=== PATIENT | female | born 1945 | race Caucasian/White ===

== ENCOUNTER 2018-03-15 09:41 | Emergency (ER) | payer MEDICARE ==
--- OUTSIDE RECORDS SUMMARY | 2018-03-15 09:55 | XMS REPORT ---
:1945 External Reference #:[id number] Author Organization [facility] 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 Jameel Haddad MD Primary Care Physician Unavailable Payers Type Date Identification Numbers Payment Provider Subscriber Medicare Primary Effective: Policy Number: Medicare Deedee Painter 2017 [id number] PayID: [id number] [address] [place] [address] [facility] Part [facility] Policy Number: [id number] [facility] Deedee Painter PayID: [id number] [address] [place] [address] Workers Compensation [facility]: [facility] [address] [address] [place] [address] Problems Date Description Provider Status Onset: 03/29/2003 Localized, primary osteoarthritis of the Active hand Onset: 10/30/2016 Screening for malignant neoplasm of colon Radu Browning MD Active Onset: 10/06/2017 Gynecologic examination Beti Acosta CNM Active Onset: 10/06/2017 Screening mammography Beti Acosta CNM Active Onset: 10/06/2017 Atrophic vaginitis Beti Acosta CNM Active Family History Date Family Member(s) Problem(s) Comments Father Heart Disease Mother Stroke Social History Type Date Description Comments Marital Status Home Environment Lives With Occupation Retired Work Status Retired Cigarette Use Never Smoked Cigarettes Smokeless Tobacco Never Used Smokeless Tobacco ETOH Use Denies alcohol use Smoking Patient denies history of smoking Recreational Drug Use Denies Drug Use Daily Caffeine Consumes on average 1 cup of hot tea per day Age 1st [place] 20 Years Old Allergies, Adverse Reactions, Alerts Date Description Reaction Status Severity Comments Sulfamethoxazole / Trimethoprim active 12/22/2013 NKDA inactive Medications Medication Date Status Form Strength Qnty SIG Indications Ordering Provider Prednisolone 03/05/ Active Suspension 1% 5ml 1 drop Z96.1 Julius Easley 2018 right eye MD Bj four times daily for four weeks; please begin after surgery Ofloxacin 02/17/ Active Solution 0.3% 1unit 1 drop H25.811 Sloan EasleyOphthalmic) 2018 s right eye MD Bj four times daily for 10 days beginning three days prior to the operation Ketorolac 02/17/ Active Solution 0.5% 5unit 1 drop H25.811 Kaushal Tromethamine 2018 s right eye MD Bj 4 times daily for 2 weeks; please begin 3 days prior to operation Metformin HCL / Active Tablets 500mg 1 po bid Unknown 0000 Gabapentin / Active Capsules 100mg 1 po qd Unknown 0000 Metoprolol / Active Tablets 50mg 1 po bid Unknown Tartrate 0000 Calcium 600 / Active 1 po qd Unknown With Vitamin D 0000 Multi For Her / Active Capsules 1 po qd Unknown 50+ 0000 Gabapentin / Active Capsules 400mg by mouth Unknown 0000 every day Simvastatin 00/ Active Tablets 10mg 1 by mouth Unknown 0000 every day Aspir-81 / Active Tablets DR 81mg 1 by mouth Unknown 0000 every day Ofloxacin 12/30/ Hx Solution 0.3% 1unit 1 drop H25.813 Sloan EasleyOphthalmic) 2018 - s left eye MD Bj times 2017 daily for 10 days beginning three days before surgery Prednisolone 12/30/ Hx Suspension 1% 5ml 1 drop H25.813 Kaushal Acetate 2018 - left eye MD Bj four times 2017 daily for four weeks; please begin after surgery Ketorolac 12/30/ Hx Solution 0.5% 5unit 1 drop H25.813 Michael Easleymethamine 2018 - s operative MD Bj 01/28/ eye 4 2018 times daily for 2 weeks; please begin 3 days prior to operation Golytely 10/30/ Hx Solution Rec 236gm 4000m drink half Z12.11 Radu 2016 - l the MD Nam evening 2017 before and half the morning of the procedure (1 cup every 10') Dulcolax 10/30/ Hx Tablets DR 5mg 4tabs 4 tablets Z12.11 Radu 2016 - taken raquel Browning MD 8pm the 2017 day before the procedure Magnesium 10/30/ Hx Solution 1.745GM/30 296ml 1 bottle Z12.11 Radu Citrate 2017 - ML po x one MD Nam 2018 directed Simvastatin / Hx Tablets 10mg Unknown 0000 Glimepiride / Hx Tablets 1mg Unknown 0000 Fiber-Lax / Hx Tablets 625mg Unknown 0000 Multi Vitamin / Hx Tablets Unknown Daily 0000 Aspir-81 / Hx Tablets DR 81mg Unknown 0000 Methenamine / Hx Tablets 1gm 1 po bid Unknown Hippurate - 2017 Gabapentin / Hx Capsules 100mg 1 po qd Unknown 0000 - 2017 Immunizations CPT Code Status Date Vaccine Lot # [id number] Given 06/05/2007 Pneumovax Injection Vital Signs Date Vital Result Comment 10/06/2017 BP Systolic 158 mmHg BP Diastolic 74 mmHg Body Temperature 98.0 F Heart Rate 78 /min Respiratory Rate 18 /min Height 63.5 inches 5'3.50" Weight 150.00 lb BMI (Body Mass Index) 26.2 kg/m2 BSA (Body Surface Area) 1.72 m2 [place] body weight in kilograms 53 O2 % BldC Oximetry 96 % 10/30/2016 BP Systolic Sitting Left Arm 130 mmHg BP Diastolic Sitting Left Arm 82 mmHg Heart Rate 73 /min Respiratory Rate 16 /min Height 63.5 inches 5'3.50" Weight 146.00 lb BMI (Body Mass Index) 25.5 kg/m2 BSA (Body Surface Area) 1.70 m2 [place] body weight in kilograms 53 12/22/2013 BP Systolic Sitting Right Arm 118 mmHg BP Diastolic Sitting Right Arm 60 mmHg Height 63.5 inches 5'3.50" Weight 138.00 lb BMI (Body Mass Index) 24.1 kg/m2 BSA (Body Surface Area) 1.66 m2 Results Description No Information Procedures Date CPT Code Description Status Comment 03/04/2018 84308 Extracapsular Cataract Completed Extraction W/Intraocular Lens 01/07/2018 61221 Extracapsular Cataract Completed Extraction W/Intraocular Lens 12/30/2017 21957 Ophthalmic Biometry By Completed Partial Coherence Interferometry W/Intra 12/30/2017 17070 Eye Exam Est Patient Completed Comprehensive 12/19/2017 33770 Eye Exam New Patient Completed Comprehensive 11/19/2016 81465 Colonoscopy With Biopsy Completed 10/17/2003 Colonoscopy Completed Document: 10/17/03 - Operative Colonoscopy Encounters Type Date Location Provider CPT E/M Dx Office Visit 10/06/2017 1:00p Family Medicine & [facility], Beti, [facility] G0439 Z01.411 Women's Health N95.2 Z12.31 Z01.411 Z12.31 N95.2 Office Visit 10/30/2016 11:30[place] [address] Z12.11 Office Visit 12/22/2013 10:30a Orthopaedic Office Gabrielle Molina, [address] 719.45 [facility] 719.42 719.42 719.45 E888.9 Office Visit 11/13/2007 4:00[place] [address] 401.1 250.02 786.2 Office Visit 10/16/2007 9:00a [place] [address] 461.9 250.02 401.1 Office Visit 09/11/2007 10:15a [place] [address] 719.46 Office Visit 06/05/2007 3:00p [place] [address] 401.1 562.10 333.94 V03.82 Office Visit 03/06/2007 9:15a [place] [address] 250.02 562.11 401.1 333.94 Office Visit 12/05/2006 9:00[place] [address] 250.00 Plan of Care Future Appointment(s):08/20/2018 11:15 am - Cass Brooks M.D. at Urology
--- OUTSIDE RECORDS SUMMARY | 2018-03-15 09:55 | XMS REPORT ---
:1945 External Reference #:[id number] Author Organization [facility] 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 Deedee Painter PayID: [id number] [address] [place] [address] Medicare Primary Expires: 2017 Policy Number: [id number] Medicare Deedee Painter PayID: [id number] [address] [place] [address] Workers Compensation Onset: 2013 [facility] Deedee Painter [address] [address] [place] [address] Problems Date Description Provider Status Onset: 03/29/2003 [...] of hot tea per day Age 1st [place] 20 Years Old Allergies, Adverse Reactions, Alerts Date Description Reaction Status Severity Comments Sulfamethoxazole / Trimethoprim active 12/22/2013 NKDA inactive Medications Medication Date Status Form Strength Qnty SIG Indications Ordering Provider Ofloxacin 02/17/ Active Solution 0.3% 1unit 1 drop H25.811 Kaushal (Ophthalmic) 2018 s right eye MD Bj four times daily for 10 days beginning three days prior to the operation Ketorolac 02/17/ Active Solution 0.5% 5unit 1 drop H25.811 Michael Easleymethamine 2018 s right eye MD Bj 4 [...] With Vitamin D 0000 Multi For Her 00/ Active Capsules 1 po qd Unknown 50+ 0000 Gabapentin / Active Capsules 400mg by mouth Unknown 0000 every day Simvastatin 00/ Active Tablets 10mg 1 by mouth Unknown 0000 every day Aspir-81 / Active Tablets DR 81mg 1 by mouth Unknown 0000 every day Ofloxacin 12/30/ Hx Solution 0.3% 1unit 1 drop H25.813 Kaushal (Ophthalmic) 2018 - s left eye MD Bj four times 2017 daily for 10 days beginning three days before surgery Prednisolone 12/30/ Hx Suspension 1% 5ml 1 drop H25.813 Kaushal Acetate 2018 - left eye MD Bj four times 2018 daily for four weeks; please begin after [...] - ML po x one MD Nam as 2018 directed Simvastatin / Hx Tablets 10mg [...] CPT Code Status Date Vaccine Lot # [id number] Given 06/05/2007 Pneumovax Injection Vital Signs Date Vital Result Comment 10/06/2017 BP Systolic 158 mmHg BP Diastolic 74 mmHg Body Temperature 98.0 F Heart Rate 78 /min Respiratory Rate 18 /min Height 63.5 inches 5'3.50" Weight 150.00 lb BMI (Body Mass Index) 26.2 kg/m2 BSA (Body Surface Area) 1.72 m2 [place] body weight in kilograms 53 O2 % BldC Oximetry 96 % 10/30/2016 BP Systolic Sitting Left Arm 130 mmHg BP Diastolic Sitting Left Arm 82 mmHg Heart Rate 73 /min Respiratory Rate 16 /min Height 63.5 inches 5'3.50" Weight 146.00 lb BMI (Body Mass Index) 25.5 kg/m2 BSA (Body Surface Area) 1.70 m2 [place] body weight in kilograms 53 12/22/2013 BP Systolic Sitting Right Arm 118 mmHg BP Diastolic Sitting Right Arm 60 mmHg Height 63.5 inches 5'3.50" Weight 138.00 lb BMI (Body Mass Index) 24.1 kg/m2 BSA (Body Surface Area) 1.66 m2 Results Description No Information Procedures Date CPT Code Description Status Comment 01/07/2018 13161 Extracapsular Cataract Completed Extraction W/Intraocular Lens 12/30/2017 82198 Ophthalmic Biometry By Completed Partial Coherence Interferometry W/Intra 12/30/2017 96082 Eye Exam Est Patient Completed Comprehensive 12/19/2017 48128 Eye Exam New Patient Completed Comprehensive 11/19/2016 68407 Colonoscopy With Biopsy Completed 10/17/2003 Colonoscopy Completed Document: 10/17/03 - Operative Colonoscopy Encounters Type Date Location Provider CPT E/M Dx Office Visit 10/06/2017 1:00p Family Medicine & [facility], Beti, [facility] G0439 Z01.411 Women's Health N95.2 Z12.31 Z01.411 Z12.31 N95.2 Office Visit 10/30/2016 11:30[place] [address] Z12.11 Office Visit 12/22/2013 10:30a Orthopaedic Office Gabrielle Molina, 67647 719.45 RPAC 719.42 719.42 719.45 E888.9 Office Visit 11/13/2007 4:00p [place] [address] 401.1 250.02 786.2 Office Visit 10/16/2007 9:00a [place] [address] 461.9 250.02 401.1 Office Visit 09/11/2007 10:15a [place] [address] 719.46 Office Visit 06/05/2007 3:00p [place] [address] 401.1 562.10 333.94 V03.82 Office Visit 03/06/2007 9:15a [place] [address] 250.02 562.11 401.1 333.94 Office Visit 12/05/2006 9:00[place] [address] 250.00 Plan of Care Future Appointment(s):03/04/2018 8:30 am - Bj Easley MD at Operating Room 9:15 am - Bj Easley MD at Ophthalmology
--- OUTSIDE RECORDS SUMMARY | 2018-03-15 09:56 | XMS REPORT | Continuity of Care Document ---
:1945 External Reference #:[id number] Author Name Hamida Pressley Care Team Providers Name Role Phone Jameel Haddad MD Care Team Information Nursing Manager Unavailable Jameel Haddad MD Primary Care Physician Unavailable Payers Type Date Identification Numbers Payment Provider Subscriber Policy Number: [id number] Medicare Deedee Painter PayID: [id number] [address] [place] [address] Effective: 2012 Policy Number: [facility] Supplemental Plan Deedee Painter [id number] PayID: [id number] [address] [place] [address] Effective: 2011 Policy Number: [id number] Medicare Deedee Painter Expires: 2017 PayID: [id number] [address] [place] [address] Advance Directives Description No Information Available Problems Date Description Provider Status Onset: 07/25/2011 Microscopic hematuria Debora Mart MD Active Onset: 07/25/2011 Increased frequency of urination Debora Mart MD Active Onset: 07/25/2011 Mixed urinary incontinence Beti Murillo NP/PA Active Onset: 05/12/2014 Type 2 diabetes mellitus Tara Villanueva M.D. Active Onset: 04/23/2017 Nocturnal enuresis Sathya Colbert MD Active Onset: 04/23/2017 History of chronic urinary tract Sathya Colbert MD Active infection Family History Date Family Member(s) Problem(s) Comments Father Heart Condition Mother Unknown Free Text Denies Prostate, Bladder, Kidney Cancer. No family history of kidney stones. Social History Type Date Description Comments Sex Unknown Marital Status Patient is Occupation Patient is retired Tobacco Use Reviewed: 02/19/18 Never Smoked Cigarettes does smoke Smoking Status Reviewed: 02/19/18 Never Smoked Cigarettes does smoke Tobacco Use Start: Unknown Never Smoked Cigars Tobacco Use Start: Unknown Never Smoked A Pipe ETOH Use Patient denies alcohol use Allergies, Adverse Reactions, Alerts Date Description Reaction Status Severity Comments 07/01/2014 Sulfamethoxazole Active 07/01/2014 Trimethoprim Active 05/09/2011 NKDA Inactive 07/18/2014 NKDA Inactive Medications Medication Date Status Form Strength Qnty SIG Indications Ordering Provider Simvastatin / Active Tablets 10mg qhs Unknown 0000 Gabapentin / Active Capsules 400mg qd Unknown 0000 Metoprolol / Active Tablets 50mg bid Unknown Tartrate 0000 Multi-Vitamin / Active Tablets daily Unknown 0000 Metformin HCL / Active Tablets 500mg Unknown 0000 Aspirin Adult / Active Tablets DR 81mg Once Daily Unknown Low Strength 0000 Calcium / Active Tablets 600-200mg- 2 Times A Unknown Carbonate-Vitami 0000 Unit Day n D Ketorolac / Active Solution 0.5% Instill 1 Unknown Tromethamine 0000 Drop In Operative Eye 4 Times Daily For 2 Weeks Please Begin 3 Days Prior To Operation Ofloxacin / Active Solution 0.3% Instill 1 Unknown (Ophthalmic) 0000 Drop In Left Eye Four Times Daily For 10 Days Beginning Three Days Before Surgery Keflex 01/09/ Hx Capsules 250mg 10cap 1 by mouth Sathya Burns 2018 - s twice a MD Filemon 2017 Keflex 07/27/ Hx Capsules 500mg 21cap one Sathya Donnelly - s jocelyn Colbert MD 09/25/ three 2018 times a day. Augmentin 04/28/ Hx Tablets 500-125mg 14tab 1 by mouth Sathya Burns 2018 - s twice raquel Colbert MD 2017 Keflex 08/23/ Hx Capsules 500mg 21cap 1 by mouth Kay 2017 - s 3x a day Pacheco M, 04/22/ x7d M.D. 2018 Hiprex 03/14/ Hx Tablets 1gm 270ta 1 by mouth Kay 2016 - bs three Pacheco M, 04/22/ times a M.D. 2017 day Macrodantin 02/08/ Hx Capsules 100mg 90cap 1 by mouth Kay 2016 - s daily Pacheco M, 09/25/ M.D. 2017 Macrodantin 12/01/ Hx Capsules 100mg 100ca 1 by mouth Elhassan, 2015 - ps every day Pacheco M, .D. 2016 Nitrofurantoin 12/01/ Hx Capsules 100mg 30cap 1 by mouth Angie Villanueva 2014 - s daily Pacheco M, .D. 2016 Cephalexin 07/13/ Hx Capsules 500mg 40cap Every 12 Unknown 2015 - s Hours 2015 Januvia /00/ Hx Tablets 100mg qd Unknown - 2015 Aspirin / Hx Tablets DR qd Unknown - 2015 Glimepiride /00/ Hx Tablets qd Unknown - 2014 Calcium 600 + D / Hx Tablets 600-400mg- Unknown 0000 - Unit 2014 Fiber Tabs 00/ Hx Tablets Unknown - 2014 [facility] Fiber / Hx Tablets 625mg Once Daily Unknown Laxative - 2017 Glimepiride /00/ Hx Tablets 1mg Once Daily Unknown - 2015 Fortamet / Hx Tablets ER 500mg 2 Times A Unknown 0000 - 24HR Day 2015 Nitrofurantoin 00/ Hx Capsules 100mg Take 1 Unknown Monohyd Macro 0000 - Capsule By 2016 Daily Nitrofurantoin /00/ Hx Capsules 100mg Gagen, Monohydrate/Macr 0000 - Lori ocrystals , CAN INSPECTOR 2018 Nitrofurantoin 00/00/ Hx Capsules 100mg Take 1 Unknown Monohydrate/Macr 0000 - Capsule By ocrystals 2018 Twice Daily Immunizations Description No Information Available Vital Signs Date Vital Result Comment 01/07/2018 3:13pm Height 63.5 inches 5'3.50" Weight 148.00 lb Weight 67.133 kg BMI (Body Mass Index) 25.8 kg/m2 09/26/2017 10:02am Height 63.5 inches 5'3.50" Weight 147.00 lb Weight 66.679 kg BMI (Body Mass Index) 25.6 kg/m2 06/12/2017 1:27pm Height 63.5 inches 5'3.50" Weight 145.00 lb Weight 65.772 kg BMI (Body Mass Index) 25.3 kg/m2 BP Systolic 142 mmHg BP Diastolic 82 mmHg Heart Rate 67 /min Respiratory Rate 20 /min 04/23/2017 9:07am Height 63.5 inches 5'3.50" Weight 148.00 lb Weight 67.133 kg BMI (Body Mass Index) 25.8 kg/m2 BP Systolic 122 mmHg BP Diastolic 78 mmHg Heart Rate 80 /min Respiratory Rate 20 /min 08/15/2016 9:12am Height 63.5 inches 5'3.50" Weight 141.00 lb Weight 63.958 kg BMI (Body Mass Index) 24.6 kg/m2 BP Systolic 106 mmHg left wrist audio BP Diastolic 65 mmHg left wrist audio Heart Rate 71 /min Body Temperature 97.6 F 02/28/2016 9:19am Post Void Residual ml 5 Indication:, Ultrasound [place] 08/25/2015 9:27am Height 63.5 inches 5'3.50" Weight 140.00 lb Weight 63.504 kg BMI (Body Mass Index) 24.4 kg/m2 BP Systolic 124 mmHg right wrist audio BP Diastolic 78 mmHg right wrist audio Heart Rate 72 /min Body Temperature 98.0 F 11/23/2014 10:55am Post Void Residual ml 5 Indication:, Ultrasound incont 05/12/2014 9:41am Height 63.5 inches 5'3.50" Weight 135.00 lb Weight 61.236 kg BMI (Body Mass Index) 23.5 kg/m2 BP Systolic 126 mmHg right wrist audio BP Diastolic 55 mmHg right wrist audio Heart Rate 67 /min Body Temperature 98.4 F 05/13/2013 9:02am Height 65.5 inches 5'5.50" Weight 132.00 lb Weight 59.875 kg BMI (Body Mass Index) 21.6 kg/m2 BP Systolic 138 mmHg left wrist audio BP Diastolic 75 mmHg left wrist audio Heart Rate 64 /min Respiratory Rate 12 /min Body Temperature 98.4 F Post Void Residual 5ml 05/14/2012 9:07am Height 65 inches 5'5" Weight 145.00 lb Weight 65.772 kg BMI (Body Mass Index) 24.1 kg/m2 BP Systolic 130 mmHg right BP Diastolic 87 mmHg right Heart Rate 92 /min Body Temperature 99.0 F 05/15/2011 9:00am BP Systolic 142 mmHg right wrist BP Diastolic 76 mmHg right wrist Heart Rate 91 /min Body Temperature 98.1 F Results Test Date Facility Test Result H/L Range Note Urine Culture 01/07/2018 [facility] Urine ESCHERICHIA COLI Abnormal [address] Culture [place], [place] [id number] [phone] Quantity > 100,000 CFU/mL 2 [id number] 01/07/2018 [facility] Nitrofurantoin [address] [place] [address] [phone] Trimethoprim/Sulfamethoxazole <=20 S Ampicillin 4 S Cefazolin <=4 S Ampicillin/Sulbactam <=2 S Ciprofloxacin >=4 R Piperacillin/Tazobactam <=4 S Ceftazidime <=1 S Ceftriaxone <=1 S Cefepime <=1 S Levofloxacin >=8 R Imipenem <=0.25 S Gentamicin <=1 S Tobramycin <=1 S 230 Ua Routine 01/07/2018 [facility] Ua Glucose Negative REF TO DR ADDRESS ON ORDER FOR (315)- - Ua Protein 3+ * Ua Nitrite Positive * Ua Leuko 3+ * Ua Blood 2+ * Ua Color Yellow Ua Ketones Negative Ua Clarity Cloudy Ua Specific [place] 1.025 1.003-1.030 Ua PH 7.0 5.0-7.5 Ua Bilirubin Negative Ua Urobilinogen 0.2 E.U./dL 0.0-1.0 230 Ua Routine 01/07/2018 [facility] Ua Glucose Negative REF TO DR ADDRESS ON ORDER FOR (315)- - Ua Protein 2+ * Ua Nitrite Negative Ua Leuko 3+ * Ua Blood 1+ * Ua Color Yellow Ua Ketones Negative Ua Clarity Cloudy Ua Specific [place] 1.025 1.003-1.030 Ua PH 7.0 5.0-7.5 Ua Bilirubin Negative Ua Urobilinogen 0.2 E.U./dL 0.0-1.0 Urine Culture 09/26/2017 [facility] Urine Culture URETHRAL OMAR [address] [place] [address] [phone] Quantity < 10,000 CFU/mL 230 Ua Routine 09/26/2017 [facility] Ua Glucose neg REF TO DR ADDRESS ON ORDER FOR (315)- - Ua Protein 3+ Ua Nitrite positive Ua Leuko 3+ Ua Blood 1+ Ua Color yellow Ua Ketones negative Ua Clarity cloudy Ua Specific [place] 1.010 1.003-1.030 Ua PH 7.0 5.0-7.5 Ua Bilirubin 3+ Ua Urobilinogen 0.2 0.0-1.0 230 Ua Routine 09/26/2017 [facility] Ua Glucose Negative REF TO DR ADDRESS ON ORDER FOR (234)- - Ua Protein Negative Ua Nitrite Positive * Ua Leuko 3+ * Ua Blood Negative Ua Color Yellow Ua Ketones Negative Ua Clarity Cloudy Ua Specific [place] 1.015 1.003-1.030 Ua PH 7.0 5.0-7.5 Ua Bilirubin Negative Ua Urobilinogen 0.2 E.U./dL 0.0-1.0 Urine Culture 07/24/2017 [facility] Urine ESCHERICHIA COLI Abnormal [address] [place] [address] [phone] Quantity > 100,000 CFU/mL 5 [id number] 07/24/2017 [facility] Nitrofurantoin [address] [place] [address] [phone] Trimethoprim/Sulfamethoxazole <=20 S Ampicillin 4 S Cefazolin <=4 S Ampicillin/Sulbactam <=2 S Ciprofloxacin >=4 R Piperacillin/Tazobactam <=4 S Ceftazidime <=1 S Ceftriaxone <=1 S Cefepime <=1 S Levofloxacin >=8 R Imipenem <=0.25 S Gentamicin <=1 S Tobramycin <=1 S 230 Ua Routine 07/24/2017 [facility] Ua Glucose 1+ * REF TO DR ADDRESS ON ORDER FOR (888)- - Ua Protein 1+ * Ua Nitrite Negative Ua Leuko 3+ * Ua Blood 1+ * Ua Color Yellow Ua Ketones Negative Ua Clarity Clear Ua Specific [place] 1.015 1.003-1.030 Ua PH 7.0 5.0-7.5 Ua Bilirubin Negative Ua Urobilinogen 0.2 E.U./dL 0.0-1.0 Urine Microscopy 06/12/2017 [facility] Urine WBC 50- 100 /HPF + 0 - 5 [address] [place] [address] [phone] Urine RBC 0-2 /HPF 0-2 Bacteria 2+ /HPF Neg Crystals NEG /HPF Neg Epithelial Cells 3+ /HPF Neg Sperm NEG /HPF Neg Yeast NEG /HPF Neg UACast NEG /LPF Neg Urine Culture 06/12/2017 [facility] Urine Culture NO GROWTH: 6, [address] FINAL <[place] [address] NOTE> [phone] 230 Ua Routine 06/12/2017 [facility] Ua Glucose Negative REF TO DR ADDRESS ON ORDER FOR (843)- - Ua Protein 1+ * Ua Nitrite Negative Ua Leuko 3+ * Ua Blood Negative Ua Color Yellow Ua Ketones Negative Ua Clarity Slightly Cloudy Ua Specific [place] 1.015 1.003-1.030 Ua PH 6.0 5.0-7.5 Ua Bilirubin Negative Ua Urobilinogen 0.2 E.U./dL 0.0-1.0 Urine Microscopy 04/23/2017 [facility] Urine WBC 3-5 /HPF 0 - 5 [address] [place] [address] [phone] Urine RBC 0-2 /HPF 0-2 Bacteria RARE /HPF Neg Crystals NEG /HPF Neg Epithelial Cells RARE /HPF Neg Sperm NEG /HPF Neg Yeast NEG /HPF Neg UACast NEG /LPF Neg 230 Ua Routine 04/23/2017 [facility] Ua Glucose Negative REF TO DR ADDRESS ON ORDER FOR (315)- - Ua Protein Negative Ua Nitrite Negative Ua Leuko 2+ * Ua Blood Negative Ua Color Yellow Ua Ketones Negative Ua Clarity Clear Ua Specific [place] <=1.005 1.003-1.030 Ua PH 6.0 5.0-7.5 Ua Bilirubin Negative Ua Urobilinogen 0.2 E.U./dL 0.0-1.0 Urine Culture 04/23/2017 [facility] Urine ESCHERICHIA COLI Abnormal [address] [place] [address] [phone] Quantity 10,000 - 50,000 <SEE NOTE> 9 Urine Cytology 04/23/2017 [facility] Clinical History Z87.440 [address] [place] [address] [phone] Specimen Adequacy Satisfactory for <SEE NOTE> N 10 BodySite Voided - Clean C <SEE NOTE> N 11 Gross Description Received in a sp <SEE NOTE> N 12 Microscopic Description Marked numbers o <SEE NOTE> N 13 Final Diagnosis NEGATIVE FOR HIG <SEE NOTE> N 14 CPTCode 29133 N PDF Report SEE IMAGE [id number] 04/23/2017 [facility] Nitrofurantoin [address] [place] [address] [phone] Trimethoprim/Sulfamethoxazole <=20 S Ampicillin 4 S Cefazolin <=4 S Ampicillin/Sulbactam <=2 S Ciprofloxacin >=4 R Piperacillin/Tazobactam <=4 S Ceftazidime <=1 S Ceftriaxone <=1 S Cefepime <=1 S Levofloxacin >=8 R Imipenem <=0.25 S Gentamicin <=1 S Tobramycin <=1 S Urine Culture 09/23/2016 [facility] Urine Culture MIXED URETHRAL 15, [address] <SEE NOTE> [place] [address] [phone] Quantity > 100,000 CFU/mL N 17 230 Ua Routine 08/15/2016 [facility] Ua Glucose Negative REF TO DR ADDRESS ON ORDER FOR (315)- - Ua Protein Negative Ua Nitrite Negative Ua Leuko 2+ * Ua Blood Negative Ua Color yellow Ua Ketones Negative Ua Clarity clear Ua Specifici [place] 1.010 1.003-1.030 Ua PH 6.0 5.0-7.5 Ua Bilirubin Negative Ua Urobilinogen 0.2 E.U./dL 0.0-1.0 Urine Culture 08/15/2016 [facility] Urine ESCHERICHIA COLI Abnormal [address] [place] [address] [phone] Quantity > 100,000 CFU/mL N 19 [id number] 08/15/2016 [facility] Nitrofurantoin [address] [place] [address] [phone] Trimethoprim/Sulfamethoxazole <=20 S Ampicillin 4 S Cefazolin <=4 S Ampicillin/Sulbactam <=2 S Ciprofloxacin >=4 R Piperacillin/Tazobactam <=4 S Ceftazidime <=1 S Ceftriaxone <=1 S Cefepime <=1 S Levofloxacin >=8 R Imipenem <=0.25 S Gentamicin <=1 S Tobramycin <=1 S 230 Ua Routine 02/28/2016 [facility] Ua Glucose Negative REF TO DR ADDRESS ON ORDER FOR (315)- - Ua Protein Negative Ua Nitrite Negative Ua Leuko 2+ * Ua Blood 1+ * Ua Color yellow Ua Ketones Negative Ua Clarity cloudy Ua Specifici [place] 1.015 1.003-1.030 Ua PH 7.0 5.0-7.5 Ua Bilirubin Negative Ua Urobilinogen 0.2 E.U./dL 0.0-1.0 Urine Culture 02/28/2016 [facility] Urine ESCHERICHIA COLI Abnormal [address] [place] [address] [phone] Quantity > 100,000 CFU/mL N 21 Urine Microscopy 02/28/2016 [facility] Urine WBC > 100 /HPF + 0 - 5 [address] [place] [address] [phone] Urine RBC 3-5 /HPF + 0-2 Bacteria 4+ /HPF Neg Crystals neg /HPF Neg Epithelial Cells RARE /HPF Neg Sperm NEG /HPF Neg Yeast NEG /HPF Neg Ast-[id number] 02/28/2016 [facility] Nitrofurantoin [address] [place] [address] [phone] Trimethoprim/Sulfamethoxazole <=20 S Ampicillin >=32 R Cefazolin <=4 S Ampicillin/Sulbactam >=32 R Ciprofloxacin >=4 R Piperacillin/Tazobactam <=4 S Ceftazidime <=1 S Ceftriaxone <=1 S Cefepime <=1 S Levofloxacin >=8 R Imipenem <=0.25 S Gentamicin >=16 R Tobramycin 8 I Ast-GN67 02/22/2016 [facility] Nitrofurantoin <=[address] [place] [address] [phone] Trimethoprim/Sulfamethoxazole <=20 S Ampicillin >=32 R Cefazolin <=4 S Ampicillin/Sulbactam >=32 R Ciprofloxacin >=4 R Piperacillin/Tazobactam <=4 S Ceftazidime <=1 S Ceftriaxone <=1 S Cefepime <=1 S Levofloxacin >=8 R Imipenem <=0.25 S Gentamicin >=16 R Tobramycin 8 I 230 Ua Routine 02/22/2016 [facility] Ua Glucose Negative REF TO DR ADDRESS ON ORDER FOR (662)- - Ua Protein 1+ * Ua Nitrite Negative Ua Leuko 2+ * Ua Blood Trace-intact * Ua Color yellow Ua Ketones Negative Ua Clarity cloudy Ua Specifici [place] 1.015 1.003-1.030 Ua PH 7.0 5.0-7.5 Ua Bilirubin Negative Ua Urobilinogen 0.2 E.U./dL 0.0-1.0 Urine Culture 02/22/2016 [facility] Urine ESCHERICHIA COLI Abnormal [address] [place] [address] [phone] Quantity > 100,000 CFU/mL N 23 Urine Culture 02/09/2016 [facility] Urine ESCHERICHIA COLI Abnormal [address] [place], [place] [address] [phone] Quantity > 100,000 CFU/mL N 25 Ast-GN67 02/09/2016 [facility] Nitrofurantoin <=[address] [place] [address] [phone] Trimethoprim/Sulfamethoxazole <=20 S Ampicillin >=32 R Cefazolin <=4 S Ampicillin/Sulbactam >=32 R Ciprofloxacin >=4 R Piperacillin/Tazobactam <=4 S Ceftazidime <=1 S Ceftriaxone <=1 S Cefepime <=1 S Levofloxacin >=8 R Imipenem <=0.25 S Gentamicin >=16 R Tobramycin 8 I 230 Ua Routine 02/09/2016 [facility] Ua Glucose Negative REF TO DR ADDRESS ON ORDER FOR (315)- - Ua Protein 2+ * Ua Nitrite Positive * Ua Leuko 2+ * Ua Blood 2+ * Ua Color yellow Ua Ketones Negative Ua Clarity cloudy Ua Specifici [place] 1.025 1.003-1.030 Ua PH 6.0 5.0-7.5 Ua Bilirubin Negative Ua Urobilinogen 0.2 E.U./dL 0.0-1.0 230 Ua Routine 08/25/2015 [facility] Ua Glucose Negative REF TO DR ADDRESS ON ORDER FOR (315)- - Ua Protein Negative Ua Nitrite Negative Ua Leuko 2+ * Ua Blood Negative Ua Color yellow Ua Ketones Negative Ua Clarity clear Ua Specifici [place] 1.015 1.003-1.030 Ua PH 7.0 5.0-7.5 Ua Bilirubin Negative Ua Urobilinogen 0.2 E.U./dL 0.0-1.0 230 Ua Routine 02/23/2015 [facility] Ua Glucose Negative REF TO DR ADDRESS ON ORDER FOR (315)- - Ua Protein Negative Ua Nitrite Negative Ua Leuko 2+ * Ua Blood Negative Ua Color yellow Ua Ketones Negative Ua Clarity clear Ua Specific [place] 1.010 1.003-1.030 Ua PH 7.0 5.0-7.5 Ua Bilirubin Negative Ua Urobilinogen 0.2 E.U./dL 0.0-1.0 #Ua Routine 11/29/2014 [facility] Ua Glucose Negative REF TO DR ADDRESS ON ORDER FOR (315)- - Ua Protein Negative Ua Nitrite Negative Ua Leuko 3+ * Ua Blood Negative Ua Color yellow Ua Ketones Negative Ua Clarity clear Ua Specific [place] <=1.005 1.003-1.030 Ua PH 5.5 5.0-7.5 Ua Bilirubin Negative Ua Urobilinogen 0.2 E.U./dL 0.0-1.0 Laboratory test 10/03/2014 [facility] [facility] Urine Bilirubin Negative Negative finding Urine Blood Small High Negative Urine Clarity Cloudy Clear Urine Color Yellow Yellow Urine Culture Reflexed Culture To Follow Urine Glucose (Ua) Negative Negative Urine Ketones Negative Negative Urine Leukocyte Esterase Large High Negative Urine Nitrite Positive High Negative Urine Protein Trace Negative Urine Specific [place] 1.020 1.010-1.030 Urine Urobilinogen 0.2 0.2-1.0 Urine pH 6.0 Low 6.5-7.5 Laboratory test 08/02/2014 [facility] [facility] Urine Bacteria Many High None Seen finding Urine Bilirubin Negative Negative Urine Blood Small High Negative Urine Clarity SL Cloudy Clear Urine Color Yellow Yellow Urine Culture Organism: Escherichia Coli Urine Epithelial Cells Very Few None Seen Urine Glucose (Ua) Negative Negative Urine Ketones Negative Negative Urine Leukocyte Esterase Large High Negative Urine Nitrite Negative Negative Urine Protein 30 High Negative Urine Specific [place] 1.020 1.010-1.030 Urine Urobilinogen 0.2 0.2-1.0 Urine WBC TNTC High 0-7 Urine pH 6.0 Low 6.5-7.5 Laboratory test 07/13/2014 [facility] [facility] Urine Bilirubin Negative Negative finding Urine Blood Moderate High Negative Urine Clarity SL Cloudy Clear Urine Color Yellow Yellow Urine Glucose (Ua) Negative Negative Urine Ketones Negative Negative Urine Leukocyte Esterase Large High Negative Urine Nitrite Negative Negative Urine Protein 100 High Negative Urine Specific [place] 1.020 1.010-1.030 Urine Urobilinogen 0.2 0.2-1.0 Urine pH 5.5 Low 6.5-7.5 Urine Bacteria Moderate High None Seen Urine Culture Organism: Escherichia Coli Urine Culture Reflexed Culture To Follow Urine Epithelial Cells Few None Seen Laboratory test 07/01/2014 [facility] [facility] Urine Bacteria Many High None Seen finding Urine Bilirubin Negative Negative Urine Blood Moderate High Negative Urine Clarity SL Cloudy Clear Urine Color Yellow Yellow Urine Culture Organism: Escherichia Coli Urine Culture Reflexed Culture To Follow Urine Epithelial Cells Few None Seen Urine Glucose (Ua) Negative Negative Urine Ketones Negative Negative Urine Leukocyte Esterase Large High Negative Urine Nitrite Positive High Negative Urine Protein 100 High Negative Urine Specific [place] 1.025 1.010-1.030 Urine Urobilinogen 0.2 0.2-1.0 Urine WBC TNTC High 0-7 Urine pH 6.0 Low 6.5-7.5 Laboratory test 06/30/2014 [facility] [facility] Alanine Aminotransferase 16 12 -78 finding (Alt/SGPT) Albumin 3.9 3.4-5.0 Albumin/Globulin Ratio 1.2 Alkaline Phosphatase 55 45-117 Aspartate Amino Transf (Ast/Sgot) 13 Low 15-37 Cholesterol Level 144 < 200 Erythrocyte Sedimentation Rate 30 0-30 Estimated Average Glucose (eAG) 126 Globulin 3.3 1.9-4.3 HDL Cholesterol 57 > 40 Hemoglobin A1c 6.0 4.2-6.3 Indirect Bilirubin 0.1 0.0-0.9 LDL Cholesterol, Calculated 42 < 100 Total Bilirubin 0.2 0.2-1.0 Total Creatine Kinase 73 26-192 Total Protein 7.2 6.4-8.2 Triglycerides Level 225 < 150 Laboratory test 06/15/2014 [facility] [facility] Urine Culture No Growth: finding Final Report Urine Culture & 05/12/2014 [facility] Result mixed omar 26 Sensitivity [address] [place] [address] [phone] #Ua Routine 05/12/2014 [facility] Ua Glucose Negative REF TO DR ADDRESS ON ORDER FOR (213)- - Ua Protein Negative Ua Nitrite Negative Ua Leuko 1+ * Ua Blood Negative Ua Color yellow Ua Ketones Negative Ua Clarity clear Ua Specific [place] 1.020 1.003-1.030 Ua PH 6.0 5.0-7.5 Ua Bilirubin Negative Ua Urobilinogen 0.2 E.U./dL 0.0-1.0 Laboratory test 04/03/2014 [facility] Urine Bacteria Many High None Seen finding Urine Bilirubin Negative Negative Urine Blood Large High Negative Urine Clarity Clear Clear Urine Color Yellow Yellow Urine Culture Organism: Escherichia Coli Urine Culture Reflexed Culture To Follow Urine Epithelial Cells Many None Seen Urine Glucose (Ua) Negative Negative Urine Ketones Negative Negative Urine Leukocyte Esterase Moderate High Negative Urine Nitrite Negative Negative Urine Protein 100 High Negative Urine Specific [place] 1.025 1.010-1.030 Urine Urobilinogen 0.2 0.2-1.0 Urine pH 6.0 Low 6.5-7.5 Laboratory test 03/20/2014 [facility] Urine Bacteria Moderate High None Seen finding Urine Bilirubin Negative Negative Urine Blood Large High Negative Urine Clarity SL Cloudy Clear Urine Color Yellow Yellow Urine Culture Organism: Escherichia Coli Urine Culture Reflexed Culture To Follow Urine Epithelial Cells Few None Seen Urine Glucose (Ua) Negative Negative Urine Ketones Negative Negative Urine Leukocyte Esterase Large High Negative Urine Nitrite Positive High Negative Urine Protein 100 High Negative Urine Specific [place] 1.025 1.010-1.030 Urine Urobilinogen 0.2 0.2-1.0 Urine WBC TNTC High 0-7 Urine pH 6.5 6.5-7.5 #Ua Routine 05/13/2013 [facility] Ua Glucose Negative REF TO DR ADDRESS ON ORDER FOR (315)- - Ua Protein Negative Ua Nitrite Negative Ua Leuko 1+ * Ua Blood Negative Ua Color yellow Ua Ketones Negative Ua Clarity clear Ua Specific [place] 1.020 1.003-1.030 Ua PH 6.0 5.0-7.5 Ua Bilirubin Negative Ua Urobilinogen 0.2 E.U./dL 0.2-1 #Ua Routine 05/14/2012 [facility] Ua Glucose Negative REF TO DR ADDRESS ON ORDER FOR (315)- - Ua Protein Negative Ua Nitrite Negative Ua Leuko 1+ * Ua Blood Negative Ua Color Not Entered Ua Ketones Negative Ua Clarity Not Entered Ua Specific [place] 1.020 Ua PH 6.0 Ua Bilirubin Negative Ua Urobilinogen 0.2 E.U./dL Laboratory test 05/15/2011 [facility] Urine Cytology X finding REF TO DR ADDRESS ON ORDER FOR Void ([facility]/CBL) (004)- - Culture Urine 05/15/2011 [facility] Result (SEE NOTE ) [address] [place] [address] [phone] #Ua Routine 05/15/2011 [facility] Ua Glucose Negative REF TO ADDRESS ON ORDER FOR (780)- - Ua Protein Negative Ua Nitrite Negative Ua Leuko 3+ * Ua Blood Trace-intact * Ua Color Not Entered Ua Ketones Negative Ua Clarity Not Entered Ua Specific [place] 1.015 Ua PH 6.0 Ua Bilirubin Negative Ua Urobilinogen 0.2 E.U./dL 1 ESCHERICHIA COLI 2 > 100,000 CFU/mL 3 E31.1 4 ESCHERICHIA COLI 5 > 100,000 CFU/mL 6 Z87.440 7 NO GROWTH: FINAL REPORT 8 ESCHERICHIA COLI 9 10,000 - 50,000 CFU/mL 10 Satisfactory for evaluation. 11 Voided - Clean Catch 12 Received in a specimen container, labeled with the patients name and , is Clear Yellow fluid consistent with urine, measuring approximately 40 ml. 13 Marked numbers of neutrophils present. 14 NEGATIVE FOR HIGH-GRADE UROTHELIAL CARCINOMA. 15 R35.0 R31.1 16 MIXED URETHRAL OMAR 17 > 100,000 CFU/mL SPECIMEN IS A MIX OF GRAM POSITIVE ORGANISMS CONSISTENT WITH SKIN VAGINAL CONTAMINATION. SUGGEST REPEAT SPECIMEN IF CLINICALLY INDICATED. 18 ESCHERICHIA COLI 19 > 100,000 CFU/mL 20 ESCHERICHIA COLI 21 > 100,000 CFU/mL 22 ESCHERICHIA COLI 23 > 100,000 CFU/mL 24 ESCHERICHIA COLI 25 > 100,000 CFU/mL 26 GENERAL COMMENTS: Mixed urogenital omar. 27 GENERAL COMMENTS: Less than 10,000 CFU/ml, mixed urogential omar. --- S=Sensitive I=Intermediate R=Resistant IB=Inducible Beta-lactamase. Appears in place of "Suceptible" with species known to possess inducible beta-lactamases. Potentially, they may become resistant to all beta-lactam drugs. Monitoring of p atients during/after therapy is recommended. Avoid other/combined beta- lactam drugs. Procedures Date Code Description Status 01/07/2018 89308 Catheterization, Single Spec Collection - Medicare Only Completed 06/02/2017 52745 Ultrasound Retro Renal Real Time With Image Tech Comp Completed 10/05/2016 91816388 Mammogram Completed 04/07/2016 32527049 Colonoscopy Completed 02/28/2016 66029 Bladder Scan, Post Voiding Residual Urine Completed 11/23/2014 49311 Bladder Scan, Post Voiding Residual Urine Completed 05/13/2013 00334 Bladder Scan, Post Voiding Residual Urine Completed 05/11/2012 78863 Ultrasound Retro Renal Real Time With Image Limited Completed Global Encounters Type Date Location Provider Dx Diagnosis Office Visit 02/19/2018 Alfredo/Hazel Snow Z87.440 Personal history 9:15a Urology Hammad P.AIvis of urinary (tract) infections Office Visit 01/07/2018 Leopoldo Snow Z87.440 Personal history 3:00p Urology Hammad P.AIvis of urinary (tract) infections Office Visit 09/26/2017 Alfredo/Hazel Snow Z87.440 Personal history 10:00a Urology Katy Cueva.AIvis of urinary (tract) infections N39.41 Urge incontinence Office Visit 06/12/2017 Leopoldo Burns Z87.440 Personal history 1:35p Urology MD Filemon of urinary (tract) infections Office Visit 04/23/2017 Leopoldo Burns Z87.440 Personal history 8:50a Urology MD Filemon of urinary (tract) infections N39.44 Nocturnal enuresis Office Visit 08/15/2016 Beti Ordonez Z87.440 Personal history 9:00a Urology CAN INSPECTOR/PA of urinary (tract) infections N39.44 Nocturnal enuresis 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 Office Visit 02/28/2016 Beti Ordonez Z87.440 Personal history 9:00a Urology CAN INSPECTOR/PA of urinary (tract) infections N39.44 Nocturnal enuresis 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 Office Visit 08/25/2015 Beti Ordonez Z87.440 Personal history 9:30a Urology CAN INSPECTOR/PA of urinary (tract) infections R35.0 Frequency of micturition N39.44 Nocturnal enuresis Office Visit 02/23/2015 Tara Bradshaw Z87.440 Personal 9:30a Urology Chaya Longoria history of urinary (tract) infections R35.0 Frequency of micturition N39.44 Nocturnal enuresis Office Visit 11/23/2014 Leopoldo Murillo Beti, 788.36 Incontinence 9:45a Urology CAN INSPECTOR/PA Nocturnal Enuresis 599.0 UTI Urinary Tract Infection Site Not Spec 788.41 Urinary Frequency Office Visit 05/12/2014 Tara Bradshaw 788.36 Incontinence 9:40a Urology Chaya Longoria Nocturnal Enuresis 788.41 Urinary Frequency 599.0 UTI Urinary Tract Infection Site Not Spec Office Visit 05/13/2013 Leopoldo Murillo Beti, 788.33 Incontinence Mixed 9:00a Urology CAN INSPECTOR/PA (Male) (Female) 599.72 Microscopic Hematuria Office Visit 05/14/2012 Tara Bradshaw 788.33 Incontinence 9:00a Urology Chaya Longoria Mixed (Male) (Female) Office Visit 05/15/2011 Beti Ordonez, 599.0 UTI Urinary Tract 9:00a Urology CAN INSPECTOR/PA Infection Site Not Spec 788.41 Urinary Frequency 788.33 Incontinence Mixed (Male) (Female) 599.72 Microscopic Hematuria Plan of Treatment 02/19/2018 - Yair Cueva, P.A.Z87.440 Personal history of urinary (tract) infectionsComments:Feeling well today. Reviewed signs and symptoms of UTI. We also reviewed closing our office. He doesnot want to travel to [place] for routine follow-up. She asked to have her records transferred locally. A provide her samples of 500 mg twice a day #10 pills should he become symptomatic before she isable to transfer. Call for his reviewed. FU in 6 months or when necessary
[2018-03-15 10:11] VITALS: BP 146/84
--- NOTE | 2018-03-15 10:26 | UC ---
Complaint Female HPI - HPI Summary HPI Summary: Pt presents with urinary symptoms, of urgency and frequency X 1 week. Pt is a diabetic and is concerned that she may have a UTI - History Of Current Complaint Stated Complaint: URINARY COMPLAINT Time Seen by Provider: 03/15/18 10:00 Hx Obtained From: Patient ?: No Onset/Duration: Sudden Onset, Lasting Days, Still Present Timing: Constant Severity Initially: Mild Severity Currently: Mild Pain Intensity: 0 Character: Dull Aggravating Factor(s): Urination Alleviating Factor(s): Nothing Associated Signs And Symptoms: Positive: Negative - Risk Factors Ectopic Risk Factor: Negative - Allergies/Home Medications Allergies/Adverse Reactions: Allergies Allergy/AdvReac Type Severity Reaction Status Date / Time sulfamethoxazole AdvReac Vomiting Verified 03/15/18 10:04 [From Bactrim] trimethoprim [From Bactrim] AdvReac Vomiting Verified 03/15/18 10:04 Home Medications: Home Medications Ascorbic Acid TAB* [Vitamin C TAB*] 500 mg PO DAILY 03/15/18 [History Confirmed 03/15/18] Aspirin EC TAB* [Ecotrin EC Low Dose 81 MG*] 81 mg PO DAILY 03/15/18 [History Confirmed 03/15/18] Calcium Carbonate/Vitamin D3 [Calcium 600 + Vit D Tablet] 1 each PO BID [History Confirmed 03/15/18] Gabapentin CAP(*) [Neurontin 100 mg CAP(*)] 100 mg PO DAILY 03/15/18 [History Confirmed 03/15/18] Gabapentin CAP(*) [Neurontin 400 mg CAP(*)] 400 mg PO DAILY 03/15/18 [History Confirmed 03/15/18] Metoprolol Tartrate TAB* [Lopressor TAB*] 50 mg PO BID 03/15/18 [History Confirmed 03/15/18] Simvastatin TAB(NF) [Zocor 10 MG (NF)] 10 mg PO DAILY 03/15/18 [History Confirmed 03/15/18] Vitamin THERAPEUTIC TAB* [Theragran TAB*] 1 tab PO DAILY 03/15/18 [History Confirmed 03/15/18] metFORMIN* [Glucophage 500 MG TAB *] 500 mg PO TID 03/15/18 [History Confirmed 03/15/18] PMH/Surg Hx/FS Hx/Imm Hx Previously Healthy: Yes - hard of hearing Endocrine History: Diabetes - Surgical History Surgical History: Yes Surgery Procedure, Year, and Place: T&A, partial hysterectomy - Family History Known Family History: Positive: Cardiac Disease - Social History Occupation: Retired Lives: With Family Alcohol Use: None Substance Use Type: None Smoking Status (MU): Never Smoked Tobacco Have You Smoked in the Last Year: No Review of Systems All Other Systems Reviewed And Are Negative: Yes Constitutional: Positive: Negative Skin: Positive: Negative Eyes: Positive: Negative ENT: Positive: Negative, Other - hard of hearing Respiratory: Positive: Negative Cardiovascular: Positive: Negative Gastrointestinal: Positive: Negative Genitourinary: Positive: Frequency, Urgency Motor: Positive: Negative Neurovascular: Positive: Negative Musculoskeletal: Positive: Negative Neurological: Positive: Negative Psychological: Positive: Negative Is Patient Immunocompromised?: No Physical Exam Triage Information Reviewed: Yes Appearance: Well-Appearing Vital Signs: Initial Vital Signs Temp 97.9 F 03/15/18 09:59 Pulse 72 03/15/18 09:59 Resp 16 03/15/18 09:59 BP 146/84 03/15/18 09:59 Pulse Ox 100 03/15/18 09:59 Vital Signs Reviewed: Yes Eye Exam: Normal ENT: Positive: Other - hard of hearing Dental Exam: Normal Neck exam: Normal Respiratory Exam: Normal Cardiovascular Exam: Normal Abdominal Exam: Normal Abdomen Description: Positive: Nontender Musculoskeletal Exam: Normal Neurological Exam: Normal Psychological Exam: Normal Skin Exam: Normal Complaint Female Dx - Differential Dx/Diagnosis Differential Diagnosis/HQI/PQRI: Urinary Tract Infection Provider Diagnosis: UTI (urinary tract infection) Discharge - Sign-Out/Discharge Documenting (check all that apply): Patient Departure All imaging exams completed and their final reports reviewed: No Studies - Discharge Plan Condition: Stable Disposition: HOME Prescriptions: Cephalexin CAP* [Keflex 500 CAP*] 500 mg PO Q8H #21 cap Patient Education Materials: Urinary Tract Infection in Women (ED) Referrals: Jameel Haddad MD [Primary Care Provider] - 2 Days - Billing Disposition and Condition Condition: STABLE Disposition: Home
== END 2018-03-15 10:34 | disposition home or self-care (01) ==
LOC: UCCORT 09:41
DX: N39.0 Urinary tract infection, site not specified (principal); B96.20 Unspecified Escherichia coli [E. coli] as the cause of diseases classified elsewhere; E11.9 Type 2 diabetes mellitus without complications; Z88.1 Allergy status to other antibiotic agents; Z79.84 Long term (current) use of oral hypoglycemic drugs; H91.90 Unspecified hearing loss, unspecified ear
CPT/HCPCS: 81003; 87077; 87086; 87186; 99212; G0463

== ENCOUNTER 2018-05-04 14:05 | Emergency (ER) | payer MEDICARE ==
--- OUTSIDE RECORDS SUMMARY | 2018-05-04 14:15 | XMS REPORT | Continuity of Care Document ---
:1945 External Reference #:[id number] Author Name Azalea Gonzalez Care Team Providers Name Role Phone Jameel Haddad MD Care Team Information Sharepoint Architect Unavailable Jameel Haddad MD Primary Care Physician Unavailable Payers Type Date Identification Numbers Payment Provider Subscriber Effective: 2017 Policy Number: [id number] Medicare Deedee Painter PayID: [id number] [address] [place] [address] Policy Number: [id number] [facility] Deedee Painter PayID: [id number] [address] [place] [address] Onset: 2013 [facility] Deedee Painter [address] [address] [place] [address] Advance Directives Description No Information Available Problems Date Description Provider Status Onset: 03/29/2003 [...] Stroke Social History Type Date Description Comments Sex Unknown Marital Status Home Environment Lives With Occupation Retired Work Status Retired Tobacco Use Start: Unknown Never Smoked Cigarettes Smokeless Tobacco Never Used Smokeless Tobacco ETOH Use Denies alcohol use Tobacco Use Start: Unknown Patient denies history of smoking Recreational Drug Use Denies Drug Use Smoking Status Reviewed: 03/26/18 Patient denies history of smoking Age 1st [place] 20 Years Old Allergies, Adverse Reactions, Alerts Date Description Reaction Status Severity Comments Sulfamethoxazole / Trimethoprim Active 12/22/2013 NKDA Inactive Medications Medication Date Status Form Strength Qnty SIG Indications Ordering Provider Prednisolone 03/05/ Active Suspension 1% 5ml 1 drop Z96.1 Julius Easley 2018 right eye MD Bj four times daily for four weeks; please begin after surgery Metformin HCL / Active Tablets 500mg 1 [...] by mouth Unknown 0000 every day Simvastatin / Active Tablets 10mg 1 by mouth Unknown 0000 every day Aspir-81 / Active Tablets DR 81mg 1 by mouth Unknown 0000 every day Ofloxacin 02/17/ Hx Solution 0.3% 1unit 1 drop H25.811 Sloan EasleyOphthalmic) 2017 - s right eye MD Bj times 2017 daily for 10 days beginning three days prior to the operation Ketorolac 02/17/ Hx Solution 0.5% 5unit 1 drop H25.811 Michael Easleymethamine 2017 - s right eye MD Bj times 2017 daily for 2 weeks; please begin 3 days prior to operation Ofloxacin 12/30/ Hx Solution 0.3% 1unit 1 drop H25.813 Sloan EasleyOphthalmic) 2017 - s left eye MD Bj times 2017 daily for 10 days beginning three days before surgery Prednisolone 12/30/ Hx Suspension 1% 5ml 1 drop H25.813 Julius Easley 2018 - left eye MD Bj four times 2017 daily for four weeks; please begin after surgery Ketorolac 12/30/ Hx Solution 0.5% 5unit 1 drop H25.813 Kaushal Tromethamine 2017 - s operative MD Bj 01/28/ eye 4 2018 times daily for 2 weeks; please begin 3 days prior to operation Golytely 07/26/ Hx Solution Rec 236gm 4000m drink half Z12.11 Radu 2017 - l the MD Nam evening 2017 before and half the morning of the procedure (1 cup every 10') Dulcolax 10/30/ Hx Tablets DR 5mg 4tabs 4 tablets Z12.11 Radu 2016 - taken raquel Browning MD 8pm the 2017 day before the procedure Magnesium 10/30/ Hx Solution 1.745GM/30 296ml 1 bottle Z12.11 Radu Citrate 2016 - ML po x one MD Nam [...] CPT Code Status Date Vaccine Lot # [id number] Given 06/05/2007 Pneumovax Injection Vital Signs Date Vital Result Comment 10/06/2017 1:05pm BP Systolic 158 mmHg BP Diastolic 74 mmHg Body Temperature 98.0 F Heart Rate 78 /min Respiratory Rate 18 /min Height 63.5 inches 5'3.50" Weight 150.00 lb BMI (Body Mass Index) 26.2 kg/m2 BSA (Body Surface Area) 1.72 m2 [place] body weight in kilograms 53 kg O2 % BldC Oximetry 96 % 10/30/2016 11:44am BP Systolic Sitting Left Arm 130 mmHg BP Diastolic Sitting Left Arm 82 mmHg Heart Rate 73 /min Respiratory Rate 16 /min Height 63.5 inches 5'3.50" Weight 146.00 lb BMI (Body Mass Index) 25.5 kg/m2 BSA (Body Surface Area) 1.70 m2 [place] body weight in kilograms 53 kg 12/22/2013 10:21am BP Systolic Sitting Right Arm 118 mmHg BP Diastolic Sitting Right Arm 60 mmHg Height 63.5 inches 5'3.50" Weight 138.00 lb BMI (Body Mass Index) 24.1 kg/m2 BSA (Body Surface Area) 1.66 m2 Results Description No Information Available Procedures Date Code Description Status 03/04/2018 67817 Extracapsular Cataract Extraction W/Intraocular Lens Completed 01/07/2018 52484 Extracapsular Cataract Extraction W/Intraocular Lens Completed 12/30/2017 27799 Ophthalmic Biometry By Partial Coherence Interferometry Completed W/Intra 12/30/2017 55173 Eye Exam Est Patient Comprehensive Completed 12/19/2017 01555 Eye Exam New Patient Comprehensive Completed 11/19/2016 17128 Colonoscopy With Biopsy Completed 10/17/2003 64341052 Colonoscopy Completed Encounters Type Date Location Provider Dx Diagnosis Office Visit 10/06/2017 Family Medicine Karal BetiTEJ Z01.411 Encntr for education officer 1:00p [facility] [facility] exam (general) (routine) w abnormal findings N95.2 Postmenopausal atrophic vaginitis Z12.31 Encntr screen mammogram for malignant neoplasm of breast Z01.411 Encntr for education officer exam (general) (routine) w abnormal findings Z12.31 Encntr screen mammogram for malignant neoplasm of breast N95.2 Postmenopausal atrophic vaginitis Office Visit 10/30/2016 11:30a ANDREA Browning MD Z12.11 Encounter for screening for malignant neoplasm of colon Office Visit 12/22/2013 10:30a Orthopaedic Office [place], 719.45 Pain Joint Gabrielle S., Pelvic Region & RPAC Thigh 719.42 Pain Joint Upper Arm 719.42 Pain Joint Upper Arm 719.45 Pain Joint Pelvic Region & Thigh E888.9 Unspecified Fall Office Visit 11/13/2007 4:00p Jesse Apodaca MD 401.1 Hypertension Benign 250.02 Diabetes Mellitus W/O Compl Type II Or Unspec Type Uncontrol 786.2 Cough Office Visit 10/16/2007 9:00a Jesse Apodaca MD 461.9 Sinusitis Acute Unspec 250.02 Diabetes Mellitus W/O Compl Type II Or Unspec Type Uncontrol 401.1 Hypertension Benign Office Visit 09/11/2007 10:15a Orthopaedic Christine Falk 719.46 Pain Joint Lower Office MD Raquel Leg Office Visit 06/05/2007 3:00p ANDREA Escobar 401.1 Hypertension MD Jesse Benign 562.10 Diverticulosis Colon W/O Hemorrhage 333.94 Restless Leg Syndrome V03.82 Streptococcus Pneumoniae Vaccination Spec Other Office Visit 03/06/2007 9:15a Jesse Apoadca MD 250.02 Diabetes Mellitus W/O Compl Type II Or Unspec Type Uncontrol 562.11 Diverticulitis Colon W/O Hemorrhage 401.1 Hypertension Benign 333.94 Restless Leg Syndrome Office Visit 12/05/2006 9:00a Jesse Apodaca MD 250.00 Diabetes Mellitus W/O Compl Type II Or Unspec Controlled Plan of Treatment Future Appointment(s):08/20/2018 11:15 am - Cass Brooks M.D. at [id number] - Bj Easley MDZ48.810 Encntr for surgical aftcr fol surgery on the sense qvzcstF21.1 Presence of intraocular lensComments:- post-op week #3 s/p ce , iol right eye 03/04/18- no sign of infection- IOL, IOP ok- reviewed drops, signs of infection- please stop ofloxacin- please stop ketorolac- prednisolone 1 drop operative eye four times daily through friday and then stopok to return to dr knox/dr gilmore s/p ce, iol left eye- good resultFollow up: please call with ? or concerns
--- OUTSIDE RECORDS SUMMARY | 2018-05-04 14:15 | XMS REPORT | Continuity of Care Document ---
:1945 External Reference #:[id number] Author Name Laila Gonzalez Care Team Providers Name Role Phone Jameel Haddad MD Primary Care Physician Unavailable Payers Type Date Identification Numbers Payment Provider Subscriber Effective: 2011 Policy Number: [id number] Medicare Don Waldrop PayID: [id number] [address] [place] [address] Effective: 2012 Policy Number: [facility] Don Waldrop [id number] PayID: [id number] [address] [place] [address] Advance Directives Description No Information Available Problems Date Description Provider Status Onset: 06/20/2014 Impacted cerumen Kenneth Cavanaugh M.D. Active Onset: 12/26/2014 Unspecified sensorineural hearing Kenneth Cavanaugh M.D. Active loss Onset: 06/26/2015 Chronic rhinitis Kenneth Cavanaugh M.D. Active Onset: 06/26/2015 Hypertrophy of nasal turbinates Kenneth Cavanaugh M.D. Active Onset: 12/22/2017 Candidal otitis externa Kenneth Cavanaugh M.D. Active Family History Date Family Member(s) Problem(s) Comments General Cancer Social History Type Date Description Comments Sex Unknown Occupation Unemployed Tobacco Use Start: Unknown Never Smoked Cigarettes Tobacco Use Start: Unknown Never Smoked Cigars Tobacco Use Start: Unknown Never Smoked A Pipe ETOH Use Denies alcohol use Tobacco Use Start: Unknown Patient has never smoked Smoking Status Reviewed: 01/28/19 Patient has never smoked Allergies, Adverse Reactions, Alerts Description No Known Drug Allergies Medications Medication Date Status Form Strength Qnty SIG Indications Ordering Provider Hydrocortisone 06/25/ Active Ointment 2.5% 28.350 Apply to J31.0 Kenneth 2015 gm affected Afshan garibay M.D. twice a day small amount Gabapentin 10/16/ Active Capsules 400mg 30caps 1 tablet Kenneth 2009 po q hs Chaya Cavanaugh Simvastatin 10/16/ Active Tablets 10mg 90tabs 1 po qhs Kenneth 2009 Chaya Cavanaugh Calcium 600+D / Active Tablets 600-400mg- 60tabs 1 po bid [place] , 0000 Unit MD Jameel Metoprolol / Active Tablets 50mg 180tab 1 po bid Escob[place], Tartrate 0000 s MD Jameel Metformin HCL / Active Tablets 500mg 180tab 1 by Unknown 0000 s mouth twice a day Gabapentin / Active Capsules 100mg 1 by Unknown 0000 mouth daily Multi-Vitamin / Active Tablets 1 by Unknown Daily 0000 mouth every day Aspirin / Active Tablets DR 81mg 1 by Unknown 0000 mouth every day Januvia 10/16/ Hx Tablets 100mg 30tabs 1 po qd Kenneth 2009 - Afshan 06/28Chaya Collins 2013 Propranolol HCL / Hx Caps ER 60mg 90caps 1 po qd Unknown ER 0000 - 24HR 2016 Glimepiride / Hx Tablets 1mg 30tabs 1 po qd Boo 0000 - Jameel, 12/30Karina RUFF 2015 Nitrofurantoin / Hx Capsules 100mg 1 by Unknown Macrocrystal 0000 - mouth qd 2016 Immunizations Description No Information Available Vital Signs Date Vital Result Comment 05/04/2018 1:47pm Height 63.5 inches 5'3.50" Weight 141.00 lb BP Systolic Sitting 124 mmHg BP Diastolic Sitting 76 mmHg Respiratory Rate 16 /min Pain Level 0 BMI (Body Mass Index) 24.6 kg/m2 12/29/2017 3:15pm Height 63.5 inches 5'3.50" Heart Rate 72 /min BP Systolic 130 mmHg BP Diastolic 70 mmHg Respiratory Rate 16 /min Pain Level 0 12/22/2017 1:31pm Height 63.5 inches 5'3.50" Weight 150.00 lb BP Systolic Sitting 126 mmHg BP Diastolic Sitting 70 mmHg Respiratory Rate 16 /min Pain Level 0 ringing in ears BMI (Body Mass Index) 26.2 kg/m2 06/16/2017 1:15pm Height 63.5 inches 5'3.50" Weight 150.00 lb Heart Rate 72 /min BP Systolic Sitting 122 mmHg BP Diastolic Sitting 68 mmHg Respiratory Rate 17 /min Pain Level 0 BMI (Body Mass Index) 26.2 kg/m2 12/16/2016 1:36pm Height 63.5 inches 5'3.50" Weight 142.00 lb Heart Rate 90 /min BP Systolic Sitting 114 mmHg BP Diastolic Sitting 70 mmHg Respiratory Rate 12 /min Pain Level 0 BMI (Body Mass Index) 24.8 kg/m2 06/10/2016 1:54pm Height 63.5 inches 5'3.50" Weight 140.00 lb Heart Rate 68 /min BP Systolic Sitting 138 mmHg BP Diastolic Sitting 72 mmHg Respiratory Rate 18 /min O2 % BldC Oximetry 97 % BMI (Body Mass Index) 24.4 kg/m2 01/01/2016 1:28pm Heart Rate 64 /min BP Systolic Sitting 124 mmHg BP Diastolic Sitting 70 mmHg 12/26/2014 2:07pm Heart Rate 76 /min BP Systolic Sitting 120 mmHg BP Diastolic Sitting 80 mmHg 06/20/2014 2:32pm Heart Rate 88 /min BP Systolic Sitting 130 mmHg BP Diastolic Sitting 80 mmHg 06/28/2013 2:03pm Heart Rate 86 /min BP Systolic Sitting 120 mmHg BP Diastolic Sitting 80 mmHg Results Test Date Facility Test Result H/L Range Note Poc Urinalysis 03/15/2018 [facility] Poc Glucose, Negative Negative [address] [place] [address] [phone] Poc Bilirubin, Urine Negative Negative Poc Ketone, Urine Negative Negative Poc Specific [place], Urine 1.020 N 1.010-1.030 Poc Blood, Urine 2+ Abnormal Negative Poc pH, Urine 6.0 N 5-9 Poc Protein, Urine 2+ Abnormal Negative Poc Urobilinogen, Urine 0.2 Negative Poc Nitrite, Urine Positive Abnormal Negative Poc Leukocytes, Urine 3+ Abnormal Negative Poc Color, Urine Yellow Poc Clarity, Urine Cloudy 1 Urine Culture And 03/15/2018 [facility] Urine Culture SEE RESULT 2, [address] [place] [address] [phone] 1 Residential Interior Designer: [id number] SEE RESULT BELOW Name: DON WALDROP : [address]: Elvira John MD Acct: [id number] Unit: [id number] AGE: 72 Location: [facility] Re03/15/18 SEX: F Status: DEP ER SPEC: [id number] KRUNAL: 03/15/18-[address] [facility] [address]: Ritu Thompson NP REQ: [id number] RECD: 03/15/18 STATUS: COMP OTHR DR: Elvira Haddad MD _ SOURCE: URINE SPDESC: ORDERED: Urine Culture COMMENTS: [id number] Procedure Result Reported Site Urine Culture Final 03/17/18- 0743 ML Organism 1 ESCHERICHIA COLI [place] Count >100,000 (Many) CFU/ML 1. ESCHERICHIA COLI M.I.C. RX --------- ------ Ampicillin 4 S Cefazolin <=4 S Cefepime <=1 S Ceftriaxone <=1 S Ciprofloxacin >=4 R Gentamicin <=1 S Levofloxacin >=8 R Meropenem <=0.25 S Nitrofurantoin 128 R Tetracycline <=1 S Pipercillin/Tazobactam <=4 S Trimethoprim/Sulfamethoxazole <=20 S Amoxicillin/Clavulanic Acid 4 S Aztreonam <=1 S Contact the Microbiology Department for any additional antibiotic reporting. * ML - Main Lab . END OF REPORT DEPARTMENT OF PATHOLOGY, [address] [place] [address] Jaylan Whitley M.D. Director [facility] # [id number] Procedures Date Code Description Status 05/04/2018 22323 Remove Impacted Cerumen Completed 06/16/2017 39028 Remove Impacted Cerumen Completed 12/16/2016 39863 Remove Impacted Cerumen Completed 06/10/2016 06498 Remove Impacted Cerumen Completed 01/01/2016 20672 Remove Impacted Cerumen Completed 06/26/2015 96109 Remove Impacted Cerumen Completed 12/26/2014 90859 Remove Impacted Cerumen Completed 06/20/2014 43427 Remove Impacted Cerumen Completed 12/27/2013 96335 Remove Impacted Cerumen Completed 06/28/2013 17561 Remove Impacted Cerumen Completed 12/21/2012 80225 Remove Impacted Cerumen Completed 06/22/2012 70227 Remove Impacted Cerumen Completed 12/24/2010 54859 Remove Impacted Cerumen Completed 06/18/2010 30148 Remove Impacted Cerumen Completed 10/16/2009 43641 Remove Impacted Cerumen Completed Encounters Type Date Location Provider Dx Diagnosis Office Visit 12/29/2017 [facility] B37.84 Candidal otitis 3:15[facility]2017 [facility] B37.84 Candidal otitis 1:30p [facility] 06/26/2015 [facility] H61.23 Impacted cerumen, 2:00p C.M.A. AT Chaya Cavanaugh bilateral [place] J31.0 Chronic rhinitis J34.3 Hypertrophy of nasal turbinates Office Visit 04/13/2012 Neurosurgery Jesse Zelaya 721.3 Spondylosis 10:00a Services [facility] Alvares M.D. Lumbar W/O Myelopathy Office Visit 12/23/2011 [facility] 388.30 Tinnitus 10:00a [facility] [place] [facility] Chaya 389.10 Hearing Loss Sensorineural Unspec 386.10 Vertigo Peripheral Unspec Office Visit 07/01/2011 9:45a [facility] 388.30 [facility]inn[facility] Unspecified [place] 389.10 Hearing Loss Sensorineural Unspec 386.10 Vertigo Peripheral Unspec Office Visit 06/17/2011 9:30a [facility] 388.30 Tinnitus [facility] Cadence Unspecadeline [place] 389.10 Hearing Loss Sensorineural Unspec 386.10 Vertigo Peripheral Unspec Office Visit 10/16/2009 1:15p [facility] 380.4 Impacted C.M.A. AT Chaya Cavanaugh Cerumecelestino [place] 478.0 Hypertrophy Nasal Turbinates 472.0 Rhinitis Chronic Plan of Treatment Future Appointment(s):08/04/2018 1:30 pm - Kenneth Cavanaugh M.D. at [facility] [place] AT Cvbynqnm78/28/2019 - Kenneth Cavanaugh M.D.H61.23 Impacted cerumen, bilateralComments:The patient's cerumen impaction was cleaned without difficulty.J31.0 Chronic rhinitisComments:Acute rhinitis with possible viral etiology no concern for a bacterial infection reassured she be fine for surgery. Recheck back 3 months for cerumen removal
[2018-05-04 14:18] VITALS: BP 127/71
--- NOTE | 2018-05-04 14:26 | UC ---
Complaint Female HPI - HPI Summary HPI Summary: 72 year old female presents with 3 day history of dysuria, freequency, urgency, and sensation of inability for empty bladder. Denies fever, chills, abdominal pain, back/flank pain, nause, vomiting, vaginal discharge, or abdnormal bleeding. - History Of Current Complaint Chief Complaint: UCGU Stated Complaint: URINARY Time Seen by Provider: 05/04/18 14:13 Hx Obtained From: Patient Pain Intensity: 0 - Allergies/Home Medications Allergies/Adverse Reactions: Allergies Allergy/AdvReac Type Severity Reaction Status Date / Time sulfamethoxazole AdvReac Vomiting Verified 05/04/18 14:17 [From Bactrim] trimethoprim [From Bactrim] AdvReac Vomiting Verified 05/04/18 14:17 PMH/Surg Hx/FS Hx/Imm Hx Endocrine History: Diabetes, Dyslipidemia Cardiovascular History: Hypertension - Surgical History Surgical History: Yes Surgery Procedure, Year, and Place: T&A, partial hysterectomy - Family History Known Family History: Positive: Cardiac Disease - Social History Occupation: Retired Lives: With Family Alcohol Use: None Substance Use Type: None Smoking Status (MU): Never Smoked Tobacco Have You Smoked in the Last Year: No Review of Systems All Other Systems Reviewed And Are Negative: Yes Constitutional: Negative: Fever, Chills Respiratory: Positive: Negative Cardiovascular: Positive: Negative Gastrointestinal: Negative: Abdominal Pain, Vomiting, Diarrhea, Nausea Genitourinary: Positive: Dysuria, Frequency, Urgency. Negative: Hematuria, Vaginal/Penile Discharge, Abnormal Bleeding Musculoskeletal: Positive: Negative Neurological: Positive: Negative Is Patient Immunocompromised?: No Physical Exam - Summary Physical Exam Summary: GENERAL APPEARANCE: Well developed, well nourished, alert and cooperative, and appears to be in no acute distress. CARDIAC: Normal S1 and S2. No S3, S4 or murmurs. Rhythm is regular. There is no peripheral edema, cyanosis or pallor. Extremities are warm and well perfused. Capillary refill is less than 2 seconds. LUNGS: Clear to auscultation without rales, rhonchi, wheezing or diminished breath sounds. ABDOMEN: Positive bowel sounds. Soft, nondistended, nontender. No guarding or rebound. No masses or hepatosplenomegally. No CVA tenderness. MUSKULOSKELETAL: ROM intact to all extremities. No joint erythema or tenderness. Normal muscular development. Normal gait. SKIN: Skin normal color, texture and turgor with no lesions or eruptions. Triage Information Reviewed: Yes Vital Signs: Initial Vital Signs Temp 99.2 F 05/04/18 14:15 Pulse 77 05/04/18 14:15 Resp 18 05/04/18 14:15 BP 127/71 05/04/18 14:15 Pulse Ox 99 05/04/18 14:15 Vital Signs Reviewed: Yes Diagnostics - Laboratory Diagnostic Studies Completed/Ordered: POC UA 2+ Protein, 1+ blood, + nitrites, 3 + leukocyte esterase Complaint Female Dx - Course Course Of Treatment: 72 year old female presents with 3 day history of dysuria, freequency, urgency, and sensation of inability for empty bladder. Denies fever , chills, abdominal pain, back/flank pain, nause, vomiting, vaginal discharge, or abdnormal bleeding. Afebrile. VSS. Exam reveals older adult female in no acute distress. Exam unremarkable. POC UA showed 2+ Protein, 1+ blood, + nitrites, 3+ leukocyte esterase. Will treat for acute cystitis with course of nitrofurantoin 100 mg BID x 5 days and pyridium 100 mg TID x 2 days for the discomfort. She is to follow up with her PCP in 3 days if symptoms persist. Anticipatory guidance and warning symptoms reviewed with patient. Verbalizes understanding and agrees with POC. - Differential Dx/Diagnosis Differential Diagnosis/HQI/PQRI: Renal Colic, Ureteral Stone, Urinary Tract Infection Provider Diagnosis: Acute cystitis with hematuria Discharge - Sign-Out/Discharge Documenting (check all that apply): Patient Departure All imaging exams completed and their final reports reviewed: No Studies - Discharge Plan Condition: Stable Disposition: HOME Prescriptions: Nitrofurantoin Monohyd/M-Cryst [Macrobid 100 mg Capsule] 100 mg PO BID #10 cap Phenazopyridine TAB* [Pyridium 100 mg TAB*] 100 mg PO TID #6 tab Patient Education Materials: Urinary Tract Infection in Women (ED) Referrals: Jameel Haddad MD [Primary Care Provider] - 3 Days (If no improvement.) Additional Instructions: Your urine test in the clinic today is suggestive of a urinary tract infection. We will start you on an antibiotic to treat for the infection. We will also send a urine culture today to see what bacteria grow out and make sure the antibiotic you were prescribed is appropriate to treat the infection. It will take 48-72 hours to get these results. We will contact you if there is any change in your treatment plan. Start [antibiotic]. Take Pyridium 1 tablet every 8 hours for next 2 days to help with the discomfort. This medication will turn your urine an orange color. Drink plenty of fluids. To help prevent urinary tract infections: 1) Be sure to wipe from front to back. 2) Urinate immediately after any sexual intercourse. 3) Avoid taking bubble baths. Follow up with your primary care provider in 5-7 days if symptoms persist. Seek immediate medical attention in the emergency room if you develop fever greater than 100.5 F, have severe abdominal pain, persistent vomiting, or any worsening of symptoms. - Billing Disposition and Condition Condition: STABLE Disposition: Home
--- NOTE | 2018-05-06 07:07 | UC ---
- Progress Note Progress Note: + E. coli On Macrobid await sensitivity no change abimbola 05/06/18 Course/Dx - Diagnoses Provider Diagnoses: Acute cystitis with hematuria Discharge - Sign-Out/Discharge Documenting (check all that apply): Post-Discharge Follow Up All imaging exams completed and their final reports reviewed: No Studies - Discharge Plan Condition: Stable Disposition: HOME Prescriptions: Nitrofurantoin Monohyd/M-Cryst [Macrobid 100 mg Capsule] 100 mg PO BID #10 cap Phenazopyridine TAB* [Pyridium 100 mg TAB*] 100 mg PO TID #6 tab Patient Education Materials: Urinary Tract Infection in Women (ED) Referrals: Jameel Haddad MD [Primary Care Provider] - 3 Days (If no improvement.) Additional Instructions: Your urine test in the clinic today is suggestive of a urinary tract infection. We will start you on an antibiotic to treat for the infection. We will also send a urine culture today to see what bacteria grow out and make sure the antibiotic you were prescribed is appropriate to treat the infection. It will take 48-72 hours to get these results. We will contact you if there is any change in your treatment plan. Start [antibiotic]. Take Pyridium 1 tablet every 8 hours for next 2 days to help with the discomfort. This medication will turn your urine an orange color. Drink plenty of fluids. To help prevent urinary tract infections: 1) Be sure to wipe from front to back. 2) Urinate immediately after any sexual intercourse. 3) Avoid taking bubble baths. Follow up with your primary care provider in 5-7 days if symptoms persist. Seek immediate medical attention in the emergency room if you develop fever greater than 100.5 F, have severe abdominal pain, persistent vomiting, or any worsening of symptoms. - Billing Disposition and Condition Condition: STABLE Disposition: Home
--- NOTE | 2018-05-07 07:13 | ED ---
Progress - Progress Note Progress Note: DC Macrobid; Script for keflex sent. please call patient. Course/Dx - Course Course Of Treatment: 72 year old female presents with 3 day history of dysuria, freequency, urgency, and sensation of inability for empty bladder. Denies fever , chills, abdominal pain, back/flank pain, nause, vomiting, vaginal discharge, or abdnormal bleeding. Afebrile. VSS. Exam reveals older adult female in no acute distress. Exam unremarkable. POC UA showed 2+ Protein, 1+ blood, + nitrites, 3+ leukocyte esterase. Will treat for acute cystitis with course of nitrofurantoin 100 mg BID x 5 days and pyridium 100 mg TID x 2 days for the discomfort. She is to follow up with her PCP in 3 days if symptoms persist. Anticipatory guidance and warning symptoms reviewed with patient. Verbalizes understanding and agrees with POC. - Diagnoses Provider Diagnoses: Acute cystitis with hematuria Discharge - Sign-Out/Discharge Documenting (check all that apply): Patient Departure All imaging exams completed and their final reports reviewed: No Studies - Discharge Plan Condition: Stable Disposition: HOME Prescriptions: Cephalexin CAP* [Keflex CAP*] 500 mg PO TID #14 cap Nitrofurantoin Monohyd/M-Cryst [Macrobid 100 mg Capsule] 100 mg PO BID #10 cap Phenazopyridine TAB* [Pyridium 100 mg TAB*] 100 mg PO TID #6 tab Patient Education Materials: Urinary Tract Infection in Women (ED) Referrals: Jameel Haddad MD [Primary Care Provider] - 3 Days (If no improvement.) Additional Instructions: Your urine test in the clinic today is suggestive of a urinary tract infection. We will start you on an antibiotic to treat for the infection. We will also send a urine culture today to see what bacteria grow out and make sure the antibiotic you were prescribed is appropriate to treat the infection. It will take 48-72 hours to get these results. We will contact you if there is any change in your treatment plan. Start [antibiotic]. Take Pyridium 1 tablet every 8 hours for next 2 days to help with the discomfort. This medication will turn your urine an orange color. Drink plenty of fluids. To help prevent urinary tract infections: 1) Be sure to wipe from front to back. 2) Urinate immediately after any sexual intercourse. 3) Avoid taking bubble baths. Follow up with your primary care provider in 5-7 days if symptoms persist. Seek immediate medical attention in the emergency room if you develop fever greater than 100.5 F, have severe abdominal pain, persistent vomiting, or any worsening of symptoms. - Billing Disposition and Condition Condition: STABLE Disposition: Home
== END 2018-05-04 14:42 | disposition home or self-care (01) ==
LOC: UCCORT 14:05
DX: N30.01 Acute cystitis with hematuria (principal); E11.9 Type 2 diabetes mellitus without complications; I10 Essential (primary) hypertension; Z88.2 Allergy status to sulfonamides
CPT/HCPCS: 81003; 87077; 87086; 87186; 99212; G0463

== ENCOUNTER 2018-05-23 13:07 | Emergency (ER) | payer MEDICARE ==
[2018-05-23 14:47] VITALS: BP 182/70
--- NOTE | 2018-05-23 15:33 | UC ---
Complaint Female HPI - HPI Summary HPI Summary: C/O vaginal yeast infection with increased itching and discharge in the last week. Had laparoscopic surgery on the . - History Of Current Complaint Chief Complaint: UCGeneralIllness Stated Complaint: PERSONAL Time Seen by Provider: 05/23/18 15:18 Hx Obtained From: Patient Onset/Duration: Gradual Onset, Lasting Weeks - 1, Worse Since - onset Timing: Constant Severity Initially: Mild Severity Currently: Moderate Pain Intensity: 0 Character: Burning - and itching Aggravating Factor(s): Nothing Alleviating Factor(s): Nothing Associated Signs And Symptoms: Positive: Vaginal Discharge. Negative: Fever, Back Pain, Nausea, Vomiting(# Of Episodes =) - Allergies/Home Medications Allergies/Adverse Reactions: Allergies Allergy/AdvReac Type Severity Reaction Status Date / Time sulfamethoxazole AdvReac Vomiting Verified 05/04/18 14:17 [From Bactrim] trimethoprim [From Bactrim] AdvReac Vomiting Verified 05/04/18 14:17 PMH/Surg Hx/FS Hx/Imm Hx Endocrine History: Diabetes Cardiovascular History: Hypertension - Surgical History Surgical History: Yes Surgery Procedure, Year, and Place: T&A, partial hysterectomy, OOPHERECTOMY - Family History Known Family History: Positive: Cardiac Disease, Diabetes - Social History Occupation: Retired Lives: With Family Alcohol Use: None Substance Use Type: None Smoking Status (MU): Never Smoked Tobacco Have You Smoked in the Last Year: No Review of Systems All Other Systems Reviewed And Are Negative: Yes Genitourinary: Positive: Vaginal/Penile Itching, Vaginal/Penile Discharge Is Patient Immunocompromised?: No Physical Exam Triage Information Reviewed: Yes Appearance: Well-Appearing, No Pain Distress, Well-Nourished Vital Signs: Initial Vital Signs Temp 97.7 F 05/23/18 14:39 Pulse 69 05/23/18 14:39 Resp 19 05/23/18 14:39 BP 182/70 05/23/18 14:39 Pulse Ox 100 05/23/18 14:39 Vital Signs Reviewed: Yes Eyes: Positive: Conjunctiva Inflamed ENT: Positive: Pharynx normal, TMs normal Neck exam: Normal Respiratory Exam: Normal Cardiovascular: Positive: RRR, No Murmur Musculoskeletal Exam: Normal Neurological Exam: Normal Psychological Exam: Normal Skin Exam: Normal Complaint Female Dx - Course Course Of Treatment: Laparoscopy on the 5th, probably given antibiotics resulting in yeast infection. - Differential Dx/Diagnosis Differential Diagnosis/HQI/PQRI: Appendicitis, Cervicitis, Urinary Tract Infection Provider Diagnosis: [place] vaginitis Discharge - Sign-Out/Discharge Documenting (check all that apply): Patient Departure All imaging exams completed and their final reports reviewed: No Studies - Discharge Plan Condition: Stable Disposition: HOME Prescriptions: Fluconazole 150 MG TAB* [Diflucan 150 MG TAB*] 150 mg PO WEEKLY #2 tablet Patient Education Materials: Yeast Infection (ED), Fluconazole (By mouth) Referrals: Jameel Haddad MD [Primary Care Provider] - - Billing Disposition and Condition Condition: STABLE Disposition: Home
== END 2018-05-23 15:46 | disposition home or self-care (01) ==
LOC: UCCORT 13:07
DX: B37.3 Candidiasis of vulva and vagina (principal); E11.9 Type 2 diabetes mellitus without complications; I10 Essential (primary) hypertension; Z88.2 Allergy status to sulfonamides
CPT/HCPCS: 99212; G0463

== ENCOUNTER 2018-08-06 08:23 | Emergency (ER) | payer MEDICARE ==
--- OUTSIDE RECORDS SUMMARY | 2018-08-06 08:33 | XMS REPORT | Continuity of Care Document ---
:1945 External Reference #:[id number] Author Name Kwadwo Tian Care Team Providers Name Role Phone Jameel Haddad MD Primary Care Physician Unavailable Payers Date Identification Numbers Payment Provider Subscriber Effective: 2011 Policy Number: [id number] Medicare Don Waldrop PayID: [id number] [address] [place] [address] Effective: 2012 Policy Number: [id number] [facility] Don Waldrop PayID: [id number] [address] [place] [address] Advance Directives Description No Information Available Problems Active Problems Provider Date Impacted cerumen Kenneth Cavanaugh M.D. Onset: 06/20/2014 Unspecified sensorineural hearing loss Kenneth Cavanaugh M.D. Onset: 2014 Chronic rhinitis Kenneth Cavanaugh M.D. Onset: 06/26/2015 Hypertrophy of nasal turbinates Kenneth Cavanaugh M.D. Onset: 06/26/2015 Candidal otitis externa Kenneth Cavanaugh M.D. Onset: 12/22/2017 Family History Date Family Member(s) Observation Comments General Cancer Social History Type Date Description Comments Sex Unknown Occupation Unemployed Tobacco Use Start: Unknown Never Smoked Cigarettes Tobacco Use Start: Unknown Never Smoked Cigars Tobacco Use Start: Unknown Never Smoked A Pipe ETOH Use Denies alcohol use Tobacco Use Start: Unknown Patient has never smoked Smoking Status Reviewed: 08/04/18 Patient has never smoked Allergies, Adverse Reactions, Alerts Description No Known Drug Allergies Medications Active Medications SIG Qnty Indications Ordering Date Provider Hydrocortisone Apply to 28.350gm J31.0 [facility] 06/26/2015 2.5% affected area Chaya Cavanaugh Ointment twice a day small amount Gabapentin 1 tablet po q hs 30caps [facility] 10/16/2009 400mg Capsules Chaya Cavanaugh Simvastatin 1 po qhs 90tabs [facility] 10/16/2009 10mg Tablets Chaya Cavanaugh Calcium 600+D 1 po bid 60tabs Boo, MD Jameel [id number] Tablets Metoprolol Tartrate 1 po bid 180tabs Boo, 50mg MD Jameel Tablets Metformin HCL 1 by mouth three 180tabs Unknown 500mg times a day Tablets Gabapentin 1 by mouth daily Unknown 100mg Capsules Multi-Vitamin Daily 1 by mouth every Unknown day Tablets Ferrous Sulfate 1 by mouth three Unknown 325(65Fe) times a day mg Tablets DR Docusate Sodium 1 tab by mouth Unknown 100mg twice a day Capsules History Medications Januvia 1 po qd 30tabs [facility] Afshan, 10/16/2009 - 100mg Tablets [facility] 06/28/2013 Propranolol HCL ER 1 po qd 90caps Unknown - 60mg Caps 06/09/2016 ER 24HR Glimepiride 1 po qd 30tabs Jameel Haddad, - 1mg Tablets 12/31/2015 Nitrofurantoin 1 by mouth qd Unknown - Macrocrystal 06/10/2016 100mg Capsules Aspirin 1 by mouth Unknown - 81mg Tablets DR every day 08/03/2018 Immunizations Description No Information Available Vital Signs Date Vital Result Comment 08/04/2018 1:22pm Heart Rate 72 /min BP Systolic Sitting 138 mmHg BP Diastolic Sitting 86 mmHg Respiratory Rate 16 /min Pain Level 0 05/04/2018 1:47pm Height 63.5 inches 5'3.50" Weight [...] Result H/L Range Note Poc Urinalysis 03/15/2018 [facility] Poc Glucose, Negative Negative [address] [address] [phone] Poc Bilirubin, Urine Negative Negative Poc Ketone, Urine Negative Negative Poc Specific [place], Urine 1.020 N 1.010-1.030 Poc Blood, Urine 2+ Abnormal Negative Poc pH, Urine 6.0 N 5-9 Poc Protein, Urine 2+ Abnormal Negative Poc Urobilinogen, Urine 0.2 Negative Poc Nitrite, Urine Positive Abnormal Negative Poc Leukocytes, Urine 3+ Abnormal Negative Poc Color, Urine Yellow Poc Clarity, Urine Cloudy 1 Urine Culture And 03/15/2018 [facility] Urine Culture SEE RESULT 2, [address] [place] [address] [phone] Production Control Technologist: [id number] SEE RESULT BELOW Name: DON WALDROP : [address]: Elvira John MD Acct: [id number] Unit: [id number] AGE: 72 Location: [facility] Re03/15/18 SEX: F Status: DEP ER SPEC: [id number] KRUNAL: 03/15/18-[address] [facility] [address]: Ritu Thompson NP REQ: [id number] RECD: 03/15/18 STATUS: TAVO ESPANA DR: Elvira Haddad MD _ SOURCE: URINE SPDES: ORDERED: Urine Culture COMMENTS: [id number] Procedure Result Reported Site Urine Culture Final 03/17/18- 0743 ML Organism 1 ESCHERICHIA COLI [place] Count >100,000 (Many) CFU/ML 1. ESCHERICHIA COLI [...] . END OF REPORT DEPARTMENT OF PATHOLOGY, [address] [place] [address] Jaylan Whitley M.D. Director [facility] # [id number] Procedures Date Code Description Status 05/04/2018 96379 Remove Impacted Cerumen Completed 06/16/2017 83456 Remove Impacted Cerumen Completed 12/16/2016 62981 Remove Impacted Cerumen Completed 06/10/201638977 Remove Impacted Cerumen Completed 01/01/2016 48121 Remove Impacted Cerumen Completed 06/26/2015 30521 Remove Impacted Cerumen Completed 12/26/2014 07625 Remove Impacted Cerumen Completed 06/20/2014 77621 Remove Impacted Cerumen Completed 12/27/2013 03379 Remove Impacted Cerumen Completed 06/28/2013 12603 Remove Impacted Cerumen Completed 12/21/2012 29317 Remove Impacted Cerumen Completed 06/22/2012 24078 Remove Impacted Cerumen Completed 12/24/2010 08805 Remove Impacted Cerumen Completed 06/18/2010 19607 Remove Impacted Cerumen Completed 10/16/2009 68912 Remove Impacted Cerumen Completed Encounters Type Date Location Provider Dx Diagnosis Office Visit 05/04/2018 [facility] H61.23 Impacted cerumen, 2:00p [facility] Chaya Cavanaugh bilateral [place] J31.0 Chronic rhinitis Office Visit 12/29/2017 3:15p [facility] B37.84 Candidal otitis [facility] Chaya Cavanaugh externa [place] Office Visit 12/22/2017 1:30p [facility] B37.84 [facility] [place] Office Visit 06/26/2015 2:00p [facility] H61.23 Impacted 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 Lumbar W/O Myelopathy Office Visit 12/23/2011 [facility] 388.30 Tinnitus 10:00a [facility] [place] Afshan [email or web address] Larkin 389.10 Hearing Loss Sensorineural Unspec 386.10 Vertigo Peripheral Unspec Office Visit 07/01/2011 9:45a [facility] 388.30 Tinnitus [facility] Unspecified [place] 389.10 Hearing Loss Sensorineural Unspec 386.10 Vertigo Peripheral Unspec Office Visit 06/17/2011 9:30a [facility] 388.30 Tinnitus [facility] Chaya Cavanaugh Unspecified [place] 389.10 Hearing Loss Sensorineural Unspec 386.10 Vertigo Peripheral Unspec Office Visit 10/16/2009 1:15p [facility] 380.4 Impacted [facility] Chaya Cavanaugh Cerumen [place] 478.0 Hypertrophy Nasal Turbinates 472.0 Rhinitis Chronic Plan of Treatment Future Appointment(s):12/08/2018 1:00 pm - Kenneth Cavanaugh M.D. at [facility] AT [place]
[2018-08-06 08:52] VITALS: BP 106/89
--- NOTE | 2018-08-06 09:59 | UC ---
UC General HPI - HPI Summary HPI Summary: Patient c/o burning with urination and frequency for the past 2 days. No fevers. No back pain. No abdominal pain. No N/V. States she gets frequent UTIs and has used cephalexin in the past and has been successful. States she has a hard time wiping front to back due to the arthritis in her hands. Tries to wipe front to back. Worried that she ate too many cookie and soda that caused her infection - discussed this was not the case. Meds: reviewed - History of Current Complaint Chief Complaint: UCGU Stated Complaint: URINARY COMPLAINT Time Seen by Provider: 08/06/18 08:45 Pain Intensity: 0 - Allergy/Home Medications Allergies/Adverse Reactions: Allergies Allergy/AdvReac Type Severity Reaction Status Date / Time sulfamethoxazole AdvReac Vomiting Verified 05/04/18 14:17 [From Bactrim] trimethoprim [From Bactrim] AdvReac Vomiting Verified 05/04/18 14:17 Home Medications: Home Medications Docusate CAP* [Colace Cap*] 100 mg PO BID 08/06/18 [History Confirmed 08/06/18] Ferrous Gluconate [Iron 27] 240 mg PO TID 08/06/18 [History Confirmed 08/06/18] PMH/Surg Hx/FS Hx/Imm Hx Previously Healthy: Yes Endocrine History: Diabetes, Dyslipidemia - Surgical History Surgical History: Yes Surgery Procedure, Year, and Place: T&A, partial hysterectomy, OOPHERECTOMY - Family History Known Family History: Positive: Cardiac Disease, Diabetes - Social History Alcohol Use: None Substance Use Type: None Smoking Status (MU): Never Smoked Tobacco Have You Smoked in the Last Year: No Review of Systems All Other Systems Reviewed And Are Negative: Yes Constitutional: Positive: Negative Genitourinary: Positive: Dysuria, Frequency Physical Exam Triage Information Reviewed: Yes Appearance: Well-Appearing Vital Signs: Initial Vital Signs Temp 97.9 F 08/06/18 08:47 Pulse 71 08/06/18 08:47 Resp 16 08/06/18 08:47 BP 106/89 08/06/18 08:47 Pulse Ox 98 08/06/18 08:47 Respiratory: Positive: Lungs clear, Normal breath sounds Cardiovascular: Positive: RRR, No Murmur Abdomen Description: Positive: Nontender, Other: - NO CVA tenderness Course/Dx - Course Course Of Treatment: This is a 73 yr old with dysuria U/A: consistent with UTI Plan Start Antibiotics as prescribed We will call you if you need to change antibiotics Recommend follow up with urology as scheduled Recommend wiping front to back when using the bathroom Continue to drink plenty of fluids If symptoms persist or worsen, call your PCP or return to urgent care - Diagnoses Provider Diagnosis: Cystitis Discharge - Sign-Out/Discharge Documenting (check all that apply): Patient Departure All imaging exams completed and their final reports reviewed: No Studies - Discharge Plan Condition: Good Disposition: HOME Prescriptions: Cephalexin CAP* [Keflex 500 CAP*] 500 mg PO BID #20 cap Patient Education Materials: Urinary Tract Infection in Women (ED) Referrals: Jameel Haddad MD [Primary Care Provider] - Additional Instructions: Start Antibiotics as prescribed We will call you if you need to change antibiotics Recommend follow up with urology as scheduled Recommend wiping front to back when using the bathroom Continue to drink plenty of fluids If symptoms persist or worsen, call your PCP or return to urgent care - Billing Disposition and Condition Condition: GOOD Disposition: Home
--- NOTE | 2018-08-09 07:25 | UC ---
- Progress Note Progress Note: Taking cephalexin. + E coli, sens cefazolin. (both 1st gen). RN to call pt to continue abx until completion. Course/Dx - Diagnoses Provider Diagnoses: Cystitis Discharge - Sign-Out/Discharge Documenting (check all that apply): Post-Discharge Follow Up All imaging exams completed and their final reports reviewed: No Studies - Discharge Plan Condition: Good Disposition: HOME Prescriptions: Cephalexin CAP* [Keflex 500 CAP*] 500 mg PO BID #20 cap Patient Education Materials: Urinary Tract Infection in Women (ED) Referrals: Jameel Haddad MD [Primary Care Provider] - Additional Instructions: Start Antibiotics as prescribed We will call you if you need to change antibiotics Recommend follow up with urology as scheduled Recommend wiping front to back when using the bathroom Continue to drink plenty of fluids If symptoms persist or worsen, call your PCP or return to urgent care - Billing Disposition and Condition Condition: GOOD Disposition: Home
== END 2018-08-06 10:09 | disposition home or self-care (01) ==
LOC: UCCORT 08:23
DX: N30.90 Cystitis, unspecified without hematuria (principal); R30.0 Dysuria; R35.0 Frequency of micturition; E11.9 Type 2 diabetes mellitus without complications; E78.5 Hyperlipidemia, unspecified; Z88.2 Allergy status to sulfonamides; Z88.8 Allergy status to other drugs, medicaments and biological substances
CPT/HCPCS: 81003; 87077; 87086; 87186; 99212; G0463

== ENCOUNTER 2019-01-03 11:07 | Emergency (ER) | payer MEDICARE ==
--- OUTSIDE RECORDS SUMMARY | 2019-01-03 11:23 | XMS REPORT | Continuity of Care Document ---
:1945 External Reference #:[id number] Author Name Kenneth Cavanaugh M.D. (transmitted by agent of provider Kwadwo Tian) Address [address] [address] Problems Active Problems Provider Date Impacted cerumen Kenneth Cavanaugh M.D. Onset: 06/20/2014 Unspecified sensorineural hearing loss Kenneth Cavanaugh M.D. Onset: 2014 Chronic rhinitis Kenneth Cavanaugh M.D. Onset: 06/26/2015 Hypertrophy of nasal turbinates Kenneth Cavanaugh M.D. Onset: 06/26/2015 Candidal otitis externa Kenneth Cavanaugh M.D. Onset: 12/22/2017 Social History Type Date Description Comments Sex Unknown Tobacco Use Start: Unknown Never Smoked Cigarettes Tobacco Use Start: Unknown Never Smoked Cigars Tobacco Use Start: Unknown Never Smoked A Pipe ETOH Use Denies alcohol use Tobacco Use Start: Unknown Patient has never smoked Smoking Status Reviewed: 12/08/18 Patient has never smoked Allergies, Adverse Reactions, Alerts Description No Known Drug Allergies Medications Active Medications SIG Qnty Indications Ordering Date Provider Hydrocortisone Apply to 28.350gm J31.0 Kenneth 06/26/2015 2.5% affected area Chaya Cavanaugh Ointment twice a day small amount Gabapentin 1 tablet po q hs 30caps Kenneth 10/16/2009 400mg Capsules Chaya Cavanaugh Simvastatin 1 po qhs 90tabs Kenneth 10/16/2009 10mg Tablets Chaya Cavanaugh Calcium 600+D 1 po bid 60tabs [place], MD Jameel [id number] Tablets Metoprolol Tartrate 1 po bid 180tabs [place], 50mg MD Jameel Tablets Metformin HCL 1 by mouth three 180tabs Unknown 500mg times a day Tablets Gabapentin 1 by mouth daily Unknown 100mg Capsules Multi-Vitamin Daily 1 by mouth every Unknown day Tablets Ferrous Sulfate 1 by mouth daily Unknown 325(65Fe) mg Tablets DR Docusate Sodium 1 tab by mouth Unknown 100mg twice a day Capsules Estrace Apply Pea Size Unknown 0.1mg/GM Cream Amount On Finger And Place AT Vaginal Opening Every Night Hydrocodone-Acetaminop Take 1/2-1 Unknown hen Tablet Orally 5-325mg Tablets Every 6 Hours as Needed Famotidine Take 1 Tablet By Unknown 20mg Tablets Mouth Every Day Vitamin B12 TR 1 by mouth every Unknown 1000mcg day Tablets ER Immunizations Description No Information Available Vital Signs Date Vital Result Comment 12/08/2018 10:49am Height 63 inches 5'3" Weight 140.00 lb Heart Rate 90 /min BP Systolic Sitting 128 mmHg BP Diastolic Sitting 76 mmHg Respiratory Rate 20 /min Pain Level 0 O2 % BldC Oximetry 96 % BMI (Body Mass Index) 24.8 kg/m2 08/04/2018 1:22pm Heart Rate 72 /min BP Systolic Sitting 138 mmHg BP Diastolic Sitting 86 mmHg Respiratory Rate 16 /min Pain Level 0 Results Description No Information Available Procedures Date Code Description Status 08/04/2018 45780 Remove Impacted Cerumen Completed Medical Devices Description No Information Available Encounters Description No Information Available Assessments Date Code Description Provider 08/04/2018 H61.23 Impacted cerumen, bilateral Kenneth Cavanaugh M.D. Plan of Treatment Future Appointment(s):04/13/2019 1:00 pm - Kenneth Cavanaugh M.D. at [facility]/30/2019 - Kenneth Cavanaugh M.D.H61.23 Impacted cerumen, bilateralComments:The patient's cerumen impaction was cleaned without difficulty. Functional Status Description No Information Available Mental Status Description No Information Available Referrals Description No Information Available
--- OUTSIDE RECORDS SUMMARY | 2019-01-03 11:23 | XMS REPORT | Continuity of Care Document ---
:1945 External Reference #:[id number] Author Name Cass Brooks M.D. 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 Onset: 11/23/2018 Urinary tract infectious disease Cass Brooks M.D. Onset: 08/20/2018 Social History Type Date Description Comments Sex Unknown Tobacco Use Start: Unknown Never Smoked Cigarettes Smokeless Tobacco Never Used Smokeless Tobacco ETOH Use Denies alcohol use Tobacco Use Start: Unknown Patient denies history of smoking Recreational Drug Use Denies Drug Use Smoking Status Reviewed: 10/27/18 Patient denies history of smoking Allergies, Adverse Reactions, Alerts Active Allergies Reaction Severity Comments Date Sulfamethoxazole / Trimethoprim Inactive Allergies NKDA 12/22/2013 Medications Active Medications SIG Qnty Indications Ordering Provider Date Cephalexin 1 tablet by mouth Cass Brooks, 11/23/2018 500mg given once in M.D. Capsules office for procedure Macrobid 1 tab by mouth 14caps Cass Brooks, 08/24/2018 100mg twice a day for 7 M.D. Capsules days Metformin HCL 1 po bid Unknown 500mg Tablets Gabapentin 1 po qd Unknown 100mg Capsules Metoprolol Tartrate 1 po bid Unknown 50mg Tablets Calcium 600 With 1 po qd Unknown Vitamin D Multi For Her 50+ 1 po qd Unknown Capsules Gabapentin by mouth every day Unknown 400mg Capsules Simvastatin 1 by mouth every Unknown 10mg day Tablets Iron (Ferrous 1 by mouth once a Unknown Sulfate) day 142(45Fe) mg Tablets ER Colace 1 by mouth daily Unknown 100mg Capsules and can take twice a day as needed Hydrocodone-Acetamin Take 1/2-1 Tablet Unknown ophen Orally Every 6 5-325mg Tablets Hours as Needed History Medications Cephalexin 1 by mouth twice 14caps Cass Brooks, 10/16/2018 - 500mg a day M.D. 11/23/2018 Capsules Immunizations CPT Code Status Date Vaccine Lot # [id number] Given 06/05/2007 Pneumovax Injection Vital Signs Date Vital Result Comment 11/23/2018 9:00am BP Systolic 151 mmHg BP Diastolic 79 mmHg Body Temperature 97.7 F Heart Rate 77 /min Respiratory Rate 16 /min Height 63 inches 5'3" Weight 1289.00 lb BMI (Body Mass Index) 228.3 kg/m2 BSA (Body Surface Area) 4.27 m2 [place] body weight in kilograms 52 kg O2 % BldC Oximetry 98 % Pain Level 0 10/14/2018 11:29am BP Systolic 156 mmHg BP Diastolic 81 mmHg Body Temperature 98.0 F Heart Rate 76 /min Respiratory Rate 16 /min Height 63 inches 5'3" Weight 132.25 lb BMI (Body Mass Index) 23.4 kg/m2 BSA (Body Surface Area) 1.62 m2 [place] body weight in kilograms 52 kg O2 % BldC Oximetry 96 % Pain Level 2 burning when urinating Results Test Date Facility Test Result H/L Range Note Urine Culture 10/14/2018 [facility] Urine Culture KLEBSIELLA Abnormal [address] PNEUM <[place] [address] NOTE> [phone] Quantity > 100,000 CFU/mL 2 Ast-GN67 10/14/2018 [facility] Nitrofurantoin [address] [place] [address] [phone] Trimethoprim/Sulfamethoxazole <=20 Susceptible Ampicillin 16 Resistant Cefazolin <=4 Susceptible Ampicillin/Sulbactam 4 Susceptible Ciprofloxacin >=4 Resistant Piperacillin/Tazobactam <=4 Susceptible Ceftazidime <=1 Susceptible Ceftriaxone <=1 Susceptible Cefepime <=1 Susceptible Levofloxacin >=8 Resistant Imipenem <=0.25 Susceptible Gentamicin <=1 Susceptible Tobramycin <=1 Susceptible Urine Culture 09/01/2018 [facility] Urine Culture MIXED URETHRAL F 3, [address] <SEE NOTE> [place] [address] [phone] Quantity < 10,000 CFU/mL Urine Culture 08/20/2018 [facility] Urine ENTEROCOCCUS SAMMIE Abnormal [address] Culture <SEE NOTE> [place] [address] [phone] Quantity 10,000 - 50,000 <SEE NOTE> 6 Ast-GP67 08/20/2018 [facility] Penicillin G [address] [place] [address] [phone] Tetracycline >=16 Resistant Nitrofurantoin <=16 Susceptible Ampicillin <=2 Susceptible Ciprofloxacin 1 Susceptible Levofloxacin 1 Susceptible Vancomycin 1 Susceptible Urine Dipstick 08/20/2018 [facility] Ua Color yellow Yellow Ua Clarity clear Clear Ua Leuko 125 High Negative Ua Nitrite neg Negative Ua Urobilinogen 0.2 0.2 - 1.0 E.U./dL Ua Protein 15 High Negative Ua PH 6.0 Low 6.5-7.5 Ua Blood neg Negative Ua Specific [place] 1.015 1.010-1.030 Ua Ketones neg Negative Ua Bilirubin neg Negative Ua Glucose neg Negative 1 KLEBSIELLA PNEUMONIAE 2 > 100,000 CFU/mL 3 N39.0 4 MIXED URETHRAL OMAR 5 ENTEROCOCCUS FAECALIS 6 10,000 - 50,000 CFU/mL Procedures Date Code Description Status 11/23/2018 80008 Cystoscopy Completed 07/27/2018 96636 Nerve Conduction 7-8 Studies Completed 07/27/2018 36490 Needle Electromyography Complete, Five Or More Muscles Completed Studied 10/17/2003 61655853 Colonoscopy Completed Medical Devices Description No Information Available Encounters Type Date Location Provider Dx Diagnosis Office Visit 10/14/2018 Urology Yair Cueva, N39.0 Urinary tract 11:30a PA infection, site not specified Office Visit 08/20/2018 Urology Cass Brooks, N39.0 Urinary tract 11:15a M.D. infection, site not specified Assessments Date Code Description Provider 11/23/2018 N39.0 Urinary tract infection, site not specified Cass Brooks M.D. 11/23/2018 N95.2 Postmenopausal atrophic vaginitis Cass Brooks M.D. 11/23/2018 N81.11 Cystocele, midline Cass Brooks M.D. 10/14/2018 N39.0 Urinary tract infection, site not specified Yair Cueva PA 08/20/2018 N39.0 Urinary tract infection, site not specified Cass Brooks M.D. 07/27/2018 R53.1 Weakness Zainab Lara MD 07/27/2018 M54.12 Radiculopathy, cervical region Zainab Lara MD Plan of Treatment 11/23/2018 - Cass Brooks M.D.N39.0 Urinary tract infection, site not specifiedComments:Patient will be started on Premarin cream , if she continues to have UTIs we'll do methenamine . Patient follow-up with me in 3 months.N95.2 Postmenopausal atrophic vaginitisComments:Premarin whikmM14.11 Cystocele, midlineComments:This is asymptomatic and the patient does not have evidence of urinary retention. Functional Status Description No Information Available Mental Status Description No Information Available Referrals Description No Information Available
[2019-01-03 12:11] VITALS: BP 145/64
--- NOTE | 2019-01-03 12:18 | UC ---
Skin Complaint HPI - HPI Summary HPI Summary: Pt presents with c/o rash to right upper shoulder that is itchy and "slightly painful". Pt states she thinks she has had the rash for 1 year. - History of Current Complaint Chief Complaint: UCRash Time Seen by Provider: 01/03/19 12:10 Stated Complaint: RT SHOULDER COMPLAINT (DEAF) Hx Obtained From: Patient ?: No Onset/Duration: Gradual Onset, Lasting Weeks, Still Present Skin Exposure Onset/Duration: Weeks Ago Timing: Constant Onset Severity: Mild Current Severity: Moderate Pain Intensity: 0 Location: Discrete - right upper posterior shoulder Character: Pruritus, Pain, Redness, Raised, Painful Aggravating Factor(s): Touch Alleviating Factor(s): Nothing Associated Signs & Symptoms: Positive: Rash - Allergy/Home Medications Allergies/Adverse Reactions: Allergies Allergy/AdvReac Type Severity Reaction Status Date / Time sulfamethoxazole AdvReac Vomiting Verified 01/03/19 12:12 [From Bactrim] trimethoprim [From Bactrim] AdvReac Vomiting Verified 01/03/19 12:12 Home Medications: Home Medications Calcium Carb/Vitamin D3/Vit K1 [Calcium + D Soft Chewable Tab] 1 chw PO BID [History Confirmed 01/03/19] Cyanocobalamin (Vitamin B-12) [Vitamin B12] 2,500 mcg PO BID 01/03/19 [History Confirmed 01/03/19] PMH/Surg Hx/FS Hx/Imm Hx Previously Healthy: Yes - Surgical History Surgical History: Yes Surgery Procedure, Year, and Place: T&A, partial hysterectomy, OOPHERECTOMY - Family History Known Family History: Positive: Cardiac Disease, Diabetes - Social History Occupation: Retired Lives: With Family Alcohol Use: None Substance Use Type: None Smoking Status (MU): Never Smoked Tobacco Have You Smoked in the Last Year: No Review of Systems All Other Systems Reviewed And Are Negative: Yes Constitutional: Positive: Negative Skin: Positive: Rash Eyes: Positive: Negative ENT: Positive: Negative Respiratory: Positive: Negative Cardiovascular: Positive: Negative Gastrointestinal: Positive: Negative Genitourinary: Positive: Negative Motor: Positive: Negative Neurovascular: Positive: Negative Musculoskeletal: Positive: Negative Neurological: Positive: Negative Psychological: Positive: Negative Is Patient Immunocompromised?: No Physical Exam Triage Information Reviewed: Yes Appearance: Well-Appearing Vital Signs: Initial Vital Signs Temp 98.5 F 09/29/19 12:06 Pulse 69 01/03/19 12:06 Resp 16 01/03/19 12:06 BP 145/64 01/03/19 12:06 Pulse Ox 98 01/03/19 12:06 Vital Signs Reviewed: Yes Eye Exam: Normal ENT Exam: Normal - hard of hearing Respiratory: Positive: No respiratory distress Musculoskeletal Exam: Normal Neurological Exam: Normal Psychological Exam: Normal Skin: Positive: Rashes - erythematous, clear fluid filled area on right upper posterior shoulder. ~ 5cm length and 2 cm wide Course/Dx - Differential Diagnoses - Skin Complaint Differential Diagnoses: Tinea, Urticaria, Varicella Zoster - Diagnoses Provider Diagnosis: Shingles Discharge ED - Sign-Out/Discharge Documenting (check all that apply): Patient Departure All imaging exams completed and their final reports reviewed: No Studies - Discharge Plan Condition: Stable Disposition: HOME Prescriptions: ValACYclovir (*) [Valtrex 1 GM(*)] 1 gm PO Q8H #21 tab Patient Education Materials: Shingles (ED) Referrals: Jameel Haddad MD [Primary Care Provider] - If Needed - Billing Disposition and Condition Condition: STABLE Disposition: Home
== END 2019-01-03 12:26 | disposition home or self-care (01) ==
LOC: UCCORT 11:07
DX: B02.9 Zoster without complications (principal); Z88.2 Allergy status to sulfonamides
CPT/HCPCS: 99212; G0463

== ENCOUNTER 2019-04-04 10:35 | Emergency (ER) | payer MEDICARE ==
--- OUTSIDE RECORDS SUMMARY | 2019-04-04 11:21 | XMS REPORT | Continuity of Care Document ---
:1945 External Reference #:[id number] Author Name Yair Cueva PA Address [address], [address] [place] [address] Care Team Providers Name Role Phone Jameel Haddad MD - Internal Care Team Information Pediatric Oncologist Medicine Problems Active Problems Provider Date Localized, [...] Use Denies Drug Use Smoking Status Reviewed: 02/19/19 Patient denies history of smoking Allergies, Adverse Reactions, Alerts Active Allergies Reaction Severity Comments Date Sulfamethoxazole / Trimethoprim Inactive Allergies NKDA 12/22/2013 Medications Active Medications SIG Qnty Indications Ordering Provider Date Estrace apply pea size 42.500gm Cass Brooks 11/23/2018 0.1mg/GM amount on finger M.D. Cream and place at vaginal opening every night Metformin HCL 1 po bid Unknown 500mg Tablets Gabapentin Take one tablet Unknown 100mg once daily in am Capsules take four tablets once daily in PM Metoprolol Tartrate 1 po bid Unknown 50mg Tablets Calcium 600 With 1 po qd Unknown Vitamin D Multi For Her 50+ 1 po qd Unknown Capsules Gabapentin by mouth every Unknown 400mg day Capsules Simvastatin 1 by mouth every Unknown 10mg day Tablets Iron (Ferrous 1 by mouth once Unknown Sulfate) a day 142(45Fe) mg Tablets ER Colace 1 by mouth daily Unknown 100mg Capsules and can take twice a day as needed Famotidine 1 by mouth once Unknown 20mg daily Tablets History Medications Cephalexin 1 tablet by mouth Cass Brooks, 11/23/2018 - 500mg given once in M.D. 11/24/2018 Capsules office for procedure Cephalexin 1 by mouth twice a 14caps Cass Brooks, 10/16/2018 - 500mg day M.D. 11/23/2018 Capsules Macrobid 1 tab by mouth 14caps Cass Brooks, 08/24/2018 - 100mg twice a day for 7 M.D. 02/23/2019 Capsules days Immunizations CPT Code Status Date Vaccine Lot # [id number] Given 06/05/2007 Pneumovax Injection Vital Signs Date Vital Result Comment 02/23/2019 1:36pm BP Systolic Sitting Left Arm 150 mmHg BP Diastolic Sitting Left Arm 79 mmHg Body Temperature 98.8 F Heart Rate 68 /min Respiratory Rate 12 /min Height 63 inches 5'3" Weight 129.00 lb BMI (Body Mass Index) 22.8 kg/m2 BSA (Body Surface Area) 1.60 m2 [place] body weight in kilograms 52 kg O2 % BldC Oximetry 95 % Ra Pain Level 0 11/23/2018 9:00am BP Systolic 151 mmHg BP Diastolic 79 mmHg Body Temperature 97.7 F Heart Rate 77 /min Respiratory Rate 16 /min Height 63 inches 5'3" Weight 1289.00 lb BMI (Body Mass Index) 228.3 kg/m2 BSA (Body Surface Area) 4.27 m2 [place] body weight in kilograms 52 kg O2 % BldC Oximetry 98 % Pain Level 0 Results Test Acquired Date Facility Test Result H/L Range Note Urine Dipstick 02/23/2019 [facility] Ua Color yellow Yellow Ua Clarity clear Clear Ua Leuko 500 High Negative Ua Nitrite negative Negative Ua Urobilinogen 0.2 0.2 - 1.0 E.U./dL Ua Protein negative Negative Ua PH 6.0 Low 6.5-7.5 Ua Blood negative Negative Ua Specific [place] 1.015 1.010-1.030 Ua Ketones negative Negative Ua Bilirubin negative Negative Ua Glucose negative Negative Urine Culture 10/14/2018 [facility] Urine Culture KLEBSIELLA PNEUM Abnormal [address] <SEE NOTE> [place], [place] [id number] [phone] Quantity > 100,000 CFU/mL 2 Ast-GN67 10/14/2018 [facility] Nitrofurantoin [address] [place] [address] [phone] Trimethoprim/Sulfamethoxazole <=20 Susceptible Ampicillin 16 Resistant Cefazolin <=4 Susceptible Ampicillin/Sulbactam 4 Susceptible Ciprofloxacin >=4 Resistant Piperacillin/Tazobactam <=4 Susceptible Ceftazidime <=1 Susceptible Ceftriaxone <=1 Susceptible Cefepime <=1 Susceptible Levofloxacin >=8 Resistant Imipenem <=0.25 Susceptible Gentamicin <=1 Susceptible Tobramycin <=1 Susceptible Urine Culture 09/01/2018 [facility] Urine Culture MIXED URETHRAL F 3, [address] <SEE NOTE> [place] [address] [phone] Quantity < 10,000 CFU/mL 1 KLEBSIELLA PNEUMONIAE 2 > 100,000 CFU/mL 3 N39.0 4 MIXED URETHRAL OMAR Procedures Date Code Description Status 11/23/2018 58133 Cystoscopy Completed 10/17/2003 19952279 Colonoscopy Completed Medical Devices Description No Information Available Encounters Type Date Location Provider Dx Diagnosis Office Visit 02/23/2019 Urology Yair Cueva N39.0 Urinary tract 1:45p PA infection, site not specified N95.2 Postmenopausal atrophic vaginitis Office Visit 11/23/2018 9:00a Urology Cass Brooks N39.0 Urinary tract M.D. infection, site not specified N95.2 Postmenopausal atrophic vaginitis N81.11 Cystocele, midline Office Visit 10/14/2018 11:30a Urology Yair Cueva N39.0 Urinary tract PA infection, site not specified Assessments Date Code Description Provider 02/23/2019 N39.0 Urinary tract infection, site not specified Yair Cueva PA 02/23/2019 N95.2 Postmenopausal atrophic vaginitis Yair Cueva PA 11/23/2018 N39.0 Urinary tract infection, site not specified Cass Brooks M.D. 11/23/2018 N95.2 Postmenopausal atrophic vaginitis Cass Brooks M.D. 11/23/2018 N81.11 Cystocele, midline Cass Brooks M.D. 10/14/2018 N39.0 Urinary tract infection, site not specified Yair Cueva PA Plan of Treatment Future Appointment(s):08/24/2019 10:15 am - Yair Cueva PA at [id number] - Yair Cueva, PAN39.0 Urinary tract infection, site not specifiedNew Labs:Urine Culture, Ordered: 02/23/19Comments:Her urine dips positive WBCs and is sent for culture and sensitivity. She is currently asymptomaticwe will not treat her but if she does become symptomatic we will use this to consider prophylactic antibiotics while cultures pending.N95.2 Postmenopausal atrophic vaginitisComments:She continues with topical vaginal estrogen. She is provided samples of Premarin which she continues 3 times a week intravaginally. Functional Status Description No Information Available Mental Status Description No Information Available Referrals Description No Information Available
[2019-04-04 12:08] VITALS: BP 174/78
--- NOTE | 2019-04-04 12:08 | UC ---
Complaint Female HPI - HPI Summary HPI Summary: 73 yo treated for urinary infection on 03/17/19, treated with augmentin with resolution of symptoms. For the past 5 days she has had dysuria and frequency. From history, sounds as though she has also had occasional treatment of atrophic vaginitis with estrogen preparations. No fever or back pain. Higher intake of sweets recently. - History Of Current Complaint Chief Complaint: [facility] Stated Complaint: URINARY COMPLAINT Time Seen by Provider: 04/04/19 12:05 Hx Obtained From: Patient Onset/Duration: Gradual Onset, Lasting Days Timing: Constant Severity Initially: Mild Severity Currently: Mild Pain Intensity: 3 Character: Burning Aggravating Factor(s): Urination Alleviating Factor(s): Nothing Associated Signs And Symptoms: Positive: Vaginal Discharge - and itching - Allergies/Home Medications Allergies/Adverse Reactions: Allergies Allergy/AdvReac Type Severity Reaction Status Date / Time amoxicillin [From Augmentin] Allergy Diarrhea Verified 04/04/19 11:53 clavulanic acid Allergy Diarrhea Verified 04/04/19 11:53 [From Augmentin] sulfamethoxazole AdvReac Vomiting Verified 04/04/19 11:38 [From Bactrim] trimethoprim [From Bactrim] AdvReac Vomiting Verified 04/04/19 11:38 PMH/Surg Hx/FS Hx/Imm Hx - Additional Past Medical History Additional PMH: deafness Endocrine History: Diabetes Cardiovascular History: Hypertension - Surgical History Surgical History: Yes Surgery Procedure, Year, and Place: T&A, partial hysterectomy, OOPHERECTOMY - Family History Known Family History: Positive: Cardiac Disease, Diabetes - Social History Occupation: Retired Lives: With Family Alcohol Use: None Substance Use Type: None Smoking Status (MU): Never Smoked Tobacco Have You Smoked in the Last Year: No Review of Systems All Other Systems Reviewed And Are Negative: Yes Constitutional: Positive: Negative, Other - uncertain of diabetes control, certainly has been eating more sweets over the holida. Skin: Positive: Negative Eyes: Positive: Negative ENT: Positive: Negative Respiratory: Positive: Negative Genitourinary: Positive: Dysuria, Frequency, Urgency, Vaginal/Penile Itching - has symptoms of vaginal itching--in the past has been prescribed premarin and estrace, although duration of each is unclear. Neurovascular: Positive: Negative Musculoskeletal: Positive: Negative Neurological: Positive: Negative Is Patient Immunocompromised?: No Physical Exam Triage Information Reviewed: Yes Appearance: Ill-Appearing - looks chronically unwell, Pain Distress Vital Signs: Initial Vital Signs Temp 98.1 F 04/04/19 11:42 Pulse 71 04/04/19 11:42 Resp 16 04/04/19 11:42 BP 188/80 04/04/19 11:42 Pulse Ox 99 04/04/19 11:42 Eyes: Positive: Conjunctiva Clear ENT: Positive: Pharynx normal Dental Exam: Other - edentulous Neck: Positive: Supple, Nontender, No Lymphadenopathy Respiratory: Positive: Lungs clear, Normal breath sounds Cardiovascular: Positive: RRR, No Murmur Abdomen Description: Positive: Nontender, No Organomegaly, Soft Pelvic Exam: Positive: Other - moderate to severe atrophy at vaginal introitus and inner labia, without discharge. Musculoskeletal Exam: Normal Neurological Exam: Normal Psychological Exam: Normal Skin Exam: Normal Diagnostics - Laboratory Lab Results: UA with nitrites and red cells. Complaint Female Dx - Course Course Of Treatment: cephalexin for tx of UTI, Affirm pending. - Differential Dx/Diagnosis Differential Diagnosis/HQI/PQRI: Other - atrophic vaginitis, yeast vaginitis, vaginosis Provider Diagnosis: UTI (urinary tract infection) Discharge ED - Sign-Out/Discharge Documenting (check all that apply): Patient Departure All imaging exams completed and their final reports reviewed: No Studies - Discharge Plan Condition: Stable Disposition: HOME Prescriptions: cephALEXin [Keflex] 500 mg PO BID #14 capsule Patient Education Materials: Urinary Tract Infection in Women (ED) Referrals: Jameel Haddad MD [Primary Care Provider] - Additional Instructions: Begin cephalexin for treatment of urinary infection. Culture has been sent and you will be called if a change of antibiotics is needed. Affirm test has been done and you will be notified if you need a treatment. PLEASE CALL DR SINGH TO SCHEDULE A VISIT BECAUSE YOU WOULD PROBABLY BENEFIT FROM TREATMENT OF VAGINAL ATROPHY, WHICH IS A PROBLEM POST MENOPAUSE AND INCREASES YOUR VULNERABILITY TO URINARY INFECTIONS. - Billing Disposition and Condition Condition: STABLE Disposition: Home
== END 2019-04-04 12:50 | disposition home or self-care (01) ==
LOC: UCCORT 10:35
DX: N39.0 Urinary tract infection, site not specified (principal); E11.9 Type 2 diabetes mellitus without complications; I10 Essential (primary) hypertension; Z88.0 Allergy status to penicillin; Z88.2 Allergy status to sulfonamides
CPT/HCPCS: 81003; 87077; 87086; 87186; 87480; 87510; 99212; G0463